=== PATIENT | male | born 1950 | race Caucasian/White ===

== ENCOUNTER 2022-05-06 10:26 | Inpatient (IN) | payer MEDICARE, OTHER ==
[~2022-05-06] VITALS: Ht 182.9 cm; Wt 81.8 kg
[2022-05-06] MEDS ORDERED: normal saline 1000ml 1,000 ML IV ONE ×2 (12:00→12:15)
[2022-05-06] MEDS ORDERED: CefTRIAXone/D5W-Rocephin 1gm 50 ML IV ONE (12:00)
[2022-05-06 12:23] LABS: CLARITY,URINE CLOUDY (Clear); COLOR,URINE YELLOW (Yellow); GLUCOSE, URINE 500 mg/dl (Neg); KETONES,URINE NEGATIVE (Neg); LEUKOCYTE ESTERASE ,URINE MODERATE (Neg); NITRITES, URINE NEGATIVE (Neg); OCCULT BLOOD,URINE LARGE (Neg); PROTEIN,URINE 100 mg/dl (Neg); UROBILINOGEN,URINE 0.2 E.U/dL (0.2-1.0)
[2022-05-06 12:24] LABS: BASOPHILS % (AUTO) 0.3 % (0-1); EOSINOPHILS % (AUTO) 0 % (0-6); HEMATOCRIT 45.3 % (42.0-52.0); LYMPHOCYTES # (AUTO) 1.1 X10'3 (1.1-4.8); LYMPHOCYTES % (AUTO) 9.5 % (21-51); MEAN CORPUSCULAR HEMOGLOBIN 27.5 PG (27.0-31.0); MEAN CORPUSCULAR VOLUME 83.3 FL (78-98); MEAN PLATELET VOLUME 8.4 FL (7.4-10.4); MONOCYTES # (AUTO) 0.8 X10'3 (0-0.9); MONOCYTES % (AUTO) 6.6 % (2-12); NEUTROPHILS # (AUTO) 9.8 X10'3 (1.8-7.7); NEUTROPHILS % (AUTO) 83.6 % (42-75); PLATELET COUNT 326 X10'3 (140-440); RED BLOOD COUNT 5.45 X10'6 (4.70-6.10); RED CELL DISTRIBUTION WIDTH 16.4 % (11.5-14.5); WHITE BLOOD COUNT 11.8 X10'3 (4.5-11.0)
[2022-05-06 12:29] LABS: UA COLLECTION TYPE OTHER
[2022-05-06 12:31] LABS: BACTERIA,URINE 4+ /HPF (Neg); MUCUS STRANDS NONE SEEN /LPF (Neg); RBC,URINE 50-100 /HPF (0-2); SQUAMOUS EPITHELIAL CELL,UR NONE SEEN /LPF (FEW); WBC,URINE TNTC /HPF (0-4)
[2022-05-06 13:12] LABS: ALANINE AMINOTRANSFERASE 22 U/L (12-78); ALBUMIN 3.2 G/DL (3.4-5.0); ALBUMIN/GLOBULIN RATIO 0.5 (1.1-1.5); ALKALINE PHOSPHATASE 132 IU/L (46-116); ANION GAP 12 (8-16); ASPARTATE AMINO TRANSFERASE 30 U/L (10-37); BILIRUBIN,TOTAL 0.5 MG/DL (0.1-1.0); BLOOD UREA NITROGEN 33 MG/DL (7-18); BUN/CREATININE RATIO 21.7 (5.4-32.0); CHLORIDE 99 MMOL/L (99-107); CREATININE 1.52 MG/DL (0.60-1.10); GLUCOSE 293 MG/DL (70-104); POTASSIUM 4.7 MMOL/L (3.5-5.1); SODIUM 140 MMOL/L (135-145); TOTAL CARBON DIOXIDE 29.1 MMOL/L (24-32); TOTAL PROTEIN 9.2 G/DL (6.4-8.2); eGFR 45 ML/MIN
[2022-05-06] MEDS ORDERED: DAPA10TA PO (14:09)
[2022-05-06] MEDS ORDERED: CARV-50 PO (14:09)
[2022-05-06] MEDS ORDERED: APIX5TAB3 PO (14:09)
[2022-05-06] MEDS ORDERED: ATOR40TA PO (14:09)
[2022-05-06] MEDS ORDERED: GLIP10TA21 PO (14:09)
[2022-05-06] MEDS ORDERED: FLO0.4C PO (14:09)
[2022-05-06] MEDS ORDERED: METF-438 PO (14:09)
[2022-05-06] MEDS ORDERED: LISI40TA13 PO (14:09)
[2022-05-06] MEDS ORDERED: DONE-46 PO (14:09)
[2022-05-06] MEDS ORDERED: ondansetron/PF 4mg/2ml inj IV PRN (14:50)
[2022-05-06] MEDS ORDERED: morphine 2 MG/ML inj. syringe IV PRN ×2 (14:50)
[2022-05-06] MEDS ORDERED: acetaminophen 325mg tablet PO PRN ×2 (14:50)
[2022-05-06] MEDS ORDERED: magnesium hydroxide 30ml (MOM) UD suspension PO PRN (14:50)
[2022-05-06] MEDS ORDERED: mag hydrox/Alum hydrox/simeth 30ml oral suspension PO PRN (14:50)
[2022-05-06] MEDS ORDERED: glucagon, human recombinant 1mg kit SUBCUT PRN (15:00)
[2022-05-06] MEDS ORDERED: dextrose 50%-water 50ml dispensing syringe IV PRN ×2 (15:00)
[2022-05-06] MEDS ORDERED: DEXTROSE 15 GM of carb/4 tabs (each vial/BOTTLE has 4 tablets) PO PRN ×2 (15:00)
[2022-05-06] MEDS ORDERED: MESSAGE TO PHARMACY PO ONE (15:00)
[2022-05-06] MEDS: normal saline 1000ml 1,000 ML IV SCH (15:03)
--- NOTE | 2022-05-06 17:27 | NUR ---
Family into see pt. States pt has chronic UTIs and is to high of a care for them at home. hospitalist paged and made aware that family is at bedside if provider has any questions. per family pt has been out of home medication for the past 2 wks except DM medication and lisinopril.
[2022-05-06] MEDS ORDERED: LANTUS SQ (18:14)
[2022-05-06] MEDS: apixaban 5mg tablet PO SCH (20:10)
[2022-05-06] MEDS: atorvastatin 20mg tablet PO SCH (20:11)
[2022-05-06] MEDS: carVEDilol 12.5mg tablet PO SCH (20:11)
[2022-05-06] MEDS: docusate sod 100mg capsule PO SCH (20:11)
--- NOTE | 2022-05-06 20:29 | NUR ---
[facility],
[2022-05-06] MEDS: insulin glargine (Lantus) pen - multi-dose SQ SCH (21:17)
[2022-05-07] MEDS: normal saline 1000ml 1,000 ML IV SCH ×3 (00:50→17:25)
[2022-05-07 05:18] LABS: BASOPHILS % (AUTO) 0.4 % (0-1); EOSINOPHILS % (AUTO) 0.3 % (0-6); HEMATOCRIT 38.6 % (42.0-52.0); HEMOGLOBIN 12.8 g/dl (14.0-17.9); LYMPHOCYTES # (AUTO) 1.6 X10'3 (1.1-4.8); LYMPHOCYTES % (AUTO) 19.4 % (21-51); MEAN CORPUSCULAR HEMOGLOBIN 27.7 PG (27.0-31.0); MEAN CORPUSCULAR HGB CONC 33.1 g/dL (33.0-36.5); MEAN CORPUSCULAR VOLUME 83.8 FL (78-98); MEAN PLATELET VOLUME 8.3 FL (7.4-10.4); MONOCYTES # (AUTO) 0.6 X10'3 (0-0.9); MONOCYTES % (AUTO) 7.7 % (2-12); NEUTROPHILS # (AUTO) 5.9 X10'3 (1.8-7.7); NEUTROPHILS % (AUTO) 72.2 % (42-75); PLATELET COUNT 226 X10'3 (140-440); RED CELL DISTRIBUTION WIDTH 16.3 % (11.5-14.5); WHITE BLOOD COUNT 8.1 X10'3 (4.5-11.0)
[2022-05-07 05:28] LABS: ALBUMIN 2.4 G/DL (3.4-5.0); ANION GAP 10 (8-16); BLOOD UREA NITROGEN 28 MG/DL (7-18); CALCIUM 8.9 MG/DL (8.5-10.1); CHLORIDE 108 MMOL/L (99-107); CREATININE 1.27 MG/DL (0.60-1.10); GLUCOSE 214 MG/DL (70-104); POTASSIUM 3.9 MMOL/L (3.5-5.1); SODIUM 145 MMOL/L (135-145); TOTAL CARBON DIOXIDE 27.2 MMOL/L (24-32); eGFR 56 ML/MIN
[2022-05-07 07:00] VITALS: BP 148/72
--- NOTE | 2022-05-07 07:00 | NUR ---
PATIENT ARRIVED TO GI LAB FROM THE ER, REPORT RECEIVED AND CARE ASSUMED. ASSESSMENT DONE, VITAL TAKEN, NO C/O PAIN OR DISCOMFORT.
[2022-05-07] MEDS: insulin Lispro (HumaLOG) vial - multi-dose SQ SCH ×3 (08:41→19:27)
[2022-05-07] MEDS: CefTRIAXone/D5W-Rocephin 1gm 50 ML IV SCH (09:28)
[2022-05-07] MEDS: donepezil 5mg tablet PO SCH (09:28)
[2022-05-07] MEDS: tamsulosin 0.4mg capsule PO SCH (09:29)
[2022-05-07] MEDS: carVEDilol 12.5mg tablet PO SCH ×2 (09:29→19:30)
[2022-05-07] MEDS: docusate sod 100mg capsule PO SCH ×2 (09:29→19:30)
[2022-05-07] MEDS: apixaban 5mg tablet PO SCH ×2 (09:29→19:30)
[2022-05-07] MEDS: lisinopril 20mg tablet PO SCH (09:30)
[2022-05-07 11:00] VITALS: BP 141/82
--- NOTE | 2022-05-07 14:56 | NUR ---
Patient in room ED 7. I have received report from fern WHYTE and had the opportunity to ask questions and awaiting patients arrival.
--- NOTE | 2022-05-07 15:15 | NUR ---
Transfered to 350B on tele and room air via bed. Report called all questions answered.
[2022-05-07 15:41] VITALS: BP 123/71
[2022-05-07 17:05] VITALS: BP 126/78
--- NOTE | 2022-05-07 17:08 | NUR ---
1600 patient settled in room. VSS. BS 137. no new complaints
--- NOTE | 2022-05-07 17:56 | NUR ---
Problems reprioritized. Patient report given, questions answered & plan of care reviewed with jefry hansen.
[2022-05-07 18:00] VITALS: BP 126/78
--- NOTE | 2022-05-07 18:06 | NUR ---
tELE CALLED TO SAY PATIENT HAD 12BEAT RUN OF VTACH. dR Gar PAGED APPEARS STABLE AT THIS TIME.
--- NOTE | 2022-05-07 18:32 | NUR ---
Problems reprioritized. Patient report given, questions answered & plan of care reviewed with Parish WHYTE.
--- NOTE | 2022-05-07 18:35 | NUR ---
Patient in room [facility] 358. I have received report from KARYN WHYTE and had the opportunity to ask questions and assume patient care.
[2022-05-07] MEDS: atorvastatin 20mg tablet PO SCH (19:30)
[2022-05-07] MEDS: insulin glargine (Lantus) pen - multi-dose SQ SCH (21:25)
[2022-05-07 22:00] VITALS: BP 122/74
--- NOTE | 2022-05-08 06:30 | NUR ---
Problems reprioritized. Patient report given, questions answered & plan of care reviewed with AUSTIN WHYTE.
[2022-05-08] MEDS: normal saline 1000ml 1,000 ML IV SCH ×2 (06:50→16:50)
[2022-05-08 07:19] LABS: BASOPHILS % (AUTO) 0.5 % (0-1); EOSINOPHILS # (AUTO) 0.1 X10'3 (0-0.9); EOSINOPHILS % (AUTO) 1.4 % (0-6); HEMATOCRIT 37.1 % (42.0-52.0); HEMOGLOBIN 12.2 g/dl (14.0-17.9); LYMPHOCYTES % (AUTO) 13.8 % (21-51); MEAN CORPUSCULAR HEMOGLOBIN 27.5 PG (27.0-31.0); MEAN CORPUSCULAR HGB CONC 32.8 g/dL (33.0-36.5); MEAN CORPUSCULAR VOLUME 83.7 FL (78-98); MONOCYTES # (AUTO) 0.5 X10'3 (0-0.9); NEUTROPHILS # (AUTO) 5.7 X10'3 (1.8-7.7); NEUTROPHILS % (AUTO) 77.3 % (42-75); PLATELET COUNT 201 X10'3 (140-440); RED BLOOD COUNT 4.43 X10'6 (4.70-6.10); RED CELL DISTRIBUTION WIDTH 16.6 % (11.5-14.5); WHITE BLOOD COUNT 7.3 X10'3 (4.5-11.0)
[2022-05-08] MEDS: donepezil 5mg tablet PO SCH (07:27)
[2022-05-08] MEDS: tamsulosin 0.4mg capsule PO SCH (07:27)
[2022-05-08] MEDS: lisinopril 20mg tablet PO SCH (07:27)
[2022-05-08] MEDS: carVEDilol 12.5mg tablet PO SCH ×2 (07:28→21:07)
[2022-05-08] MEDS: apixaban 5mg tablet PO SCH ×2 (07:28→21:06)
[2022-05-08] MEDS: docusate sod 100mg capsule PO SCH ×2 (07:28→21:07)
[2022-05-08] MEDS: CefTRIAXone/D5W-Rocephin 1gm 50 ML IV SCH (07:32)
[2022-05-08 07:36] LABS: ALBUMIN 2.2 G/DL (3.4-5.0); ANION GAP 11 (8-16); BLOOD UREA NITROGEN 22 MG/DL (7-18); CALCIUM 8.7 MG/DL (8.5-10.1); CHLORIDE 104 MMOL/L (99-107); GLUCOSE 179 MG/DL (70-104); POTASSIUM 3.5 MMOL/L (3.5-5.1); SODIUM 141 MMOL/L (135-145); TOTAL CARBON DIOXIDE 26.3 MMOL/L (24-32); eGFR 66 ML/MIN
[2022-05-08 08:00] VITALS: BP 136/87
[2022-05-08 10:00] VITALS: BP 117/70
--- NOTE | 2022-05-08 12:59 | NUR ---
Malnutrition consult: Pt reports 2-13 lb wt loss with decreased appetite per malnutrition risk screen with RN though per EMR pt is A/O x 1 and confused with h/o dementia. No documentation of how current wt was obtained and no wt hx in EMR, though current wt is appropriate if accurate. Pt on a heart healthy CHO controlled diet and eating well, documented with 100% PO intake throughout LOS meeting estimated nutrient needs. Per EMR pt with no decrease in muscle strength or edema. Pt currently lacks a minimum of two criteria for malnutrition. Per EMR pt with T2DM, current A1c 9.0%. Written DM education with RD contact information placed in patient's chart given AMS. Will continue to follow. Addendum: 05/08/22 at [address] Amended: Links added.
[2022-05-08] MEDS: insulin Lispro (HumaLOG) vial - multi-dose SQ SCH (14:01)
[2022-05-08 18:00] VITALS: BP 102/69
--- NOTE | 2022-05-08 18:20 | NUR ---
PAGER ID: [phone] MESSAGE: PT RM 358A SHIN FLORES 24 HOUR TELE ORDER IS UP WOULD YOU LIKE TO RENEW ORDER JOE [id number]
[2022-05-08] MEDS: atorvastatin 20mg tablet PO SCH (21:06)
[2022-05-08] MEDS: insulin glargine (Lantus) pen - multi-dose SQ SCH (21:06)
[2022-05-08 21:13] VITALS: BP 139/84
[2022-05-08 22:00] VITALS: BP 131/68
[2022-05-09] MEDS: normal saline 1000ml 1,000 ML IV SCH ×4 (02:50→23:39)
[2022-05-09 06:00] VITALS: BP 126/60
[2022-05-09 06:15] VITALS: BP 126/60
--- NOTE | 2022-05-09 06:51 | NUR ---
Patient in room [facility] 358. I have received report from Yancy and had the opportunity to ask questions and assume patient care.
--- NOTE | 2022-05-09 06:54 | NUR ---
Problems reprioritized. Patient report given, questions answered & plan of care reviewed with PATO Davenport.
[2022-05-09 07:18] LABS: BASOPHILS % (AUTO) 0.3 % (0-1); EOSINOPHILS # (AUTO) 0.1 X10'3 (0-0.9); HEMATOCRIT 33.4 % (42.0-52.0); LYMPHOCYTES # (AUTO) 1.2 X10'3 (1.1-4.8); LYMPHOCYTES % (AUTO) 16.6 % (21-51); MEAN CORPUSCULAR HEMOGLOBIN 27.1 PG (27.0-31.0); MEAN CORPUSCULAR VOLUME 81.9 FL (78-98); MEAN PLATELET VOLUME 8.1 FL (7.4-10.4); MONOCYTES # (AUTO) 0.5 X10'3 (0-0.9); MONOCYTES % (AUTO) 6.9 % (2-12); NEUTROPHILS # (AUTO) 5.6 X10'3 (1.8-7.7); NEUTROPHILS % (AUTO) 75.2 % (42-75); PLATELET COUNT 217 X10'3 (140-440); RED BLOOD COUNT 4.08 X10'6 (4.70-6.10); RED CELL DISTRIBUTION WIDTH 15.9 % (11.5-14.5); WHITE BLOOD COUNT 7.5 X10'3 (4.5-11.0)
[2022-05-09 07:27] LABS: ANION GAP 10 (8-16); BLOOD UREA NITROGEN 19 MG/DL (7-18); BUN/CREATININE RATIO 24.1 (5.4-32.0); CALCIUM 8.3 MG/DL (8.5-10.1); CHLORIDE 105 MMOL/L (99-107); CREATININE 0.79 MG/DL (0.60-1.10); GLUCOSE 167 MG/DL (70-104); SODIUM 139 MMOL/L (135-145); TOTAL CARBON DIOXIDE 24.5 MMOL/L (24-32); eGFR > 90 ML/MIN
[2022-05-09] MEDS: CefTRIAXone/D5W-Rocephin 1gm 50 ML IV SCH (07:38)
[2022-05-09 07:39] VITALS: BP 144/78
[2022-05-09] MEDS: carVEDilol 12.5mg tablet PO SCH ×2 (07:40→19:30)
[2022-05-09] MEDS: docusate sod 100mg capsule PO SCH ×2 (07:40→19:30)
[2022-05-09] MEDS: donepezil 5mg tablet PO SCH (07:40)
[2022-05-09] MEDS: apixaban 5mg tablet PO SCH ×2 (07:40→19:31)
[2022-05-09] MEDS: tamsulosin 0.4mg capsule PO SCH (07:40)
[2022-05-09] MEDS: lisinopril 20mg tablet PO SCH (07:41)
[2022-05-09] MEDS ORDERED: potassium Cl 20 mEq SR tablet PO STA (08:18)
[2022-05-09] MEDS: insulin Lispro (HumaLOG) vial - multi-dose SQ SCH ×3 (09:25→19:37)
[2022-05-09 11:36] VITALS: BP 141/84
--- NOTE | 2022-05-09 18:36 | NUR ---
Problems reprioritized. Patient report given, questions answered & plan of care reviewed with Armen.
[2022-05-09 18:44] VITALS: BP 135/85
[2022-05-09 22:00] VITALS: BP 164/83
[2022-05-09] MEDS: atorvastatin 20mg tablet PO SCH (22:11)
[2022-05-09] MEDS: insulin glargine (Lantus) pen - multi-dose SQ SCH (22:19)
--- NOTE | 2022-05-09 23:43 | NUR ---
Charting by Lila COATES reviewed by Fatimah WHYTE
[2022-05-10 02:00] VITALS: BP 118/39
[2022-05-10 06:00] VITALS: BP 150/97
[2022-05-10 06:33] VITALS: BP 150/97
[2022-05-10 06:34] LABS: BASOPHILS % (AUTO) 0.5 % (0-1); EOSINOPHILS # (AUTO) 0.2 X10'3 (0-0.9); EOSINOPHILS % (AUTO) 2.3 % (0-6); HEMATOCRIT 31.5 % (42.0-52.0); HEMOGLOBIN 10.7 g/dl (14.0-17.9); LYMPHOCYTES # (AUTO) 1.5 X10'3 (1.1-4.8); MEAN CORPUSCULAR HEMOGLOBIN 27.5 PG (27.0-31.0); MEAN PLATELET VOLUME 8.1 FL (7.4-10.4); MONOCYTES # (AUTO) 0.5 X10'3 (0-0.9); MONOCYTES % (AUTO) 6.5 % (2-12); NEUTROPHILS # (AUTO) 5.5 X10'3 (1.8-7.7); NEUTROPHILS % (AUTO) 71.7 % (42-75); PLATELET COUNT 212 X10'3 (140-440); RED CELL DISTRIBUTION WIDTH 16.1 % (11.5-14.5); WHITE BLOOD COUNT 7.6 X10'3 (4.5-11.0)
--- NOTE | 2022-05-10 06:40 | NUR ---
Patient in room [facility] 358. I have received report from Armen WHYTE and had the opportunity to ask questions and assume patient care.
--- NOTE | 2022-05-10 06:45 | NUR ---
reported to days. noted pt has condom cath in place. tabs alarm active.
[2022-05-10 06:46] LABS: BLOOD UREA NITROGEN 15 MG/DL (7-18); BUN/CREATININE RATIO 22.7 (5.4-32.0); CALCIUM 8.1 MG/DL (8.5-10.1); CREATININE 0.66 MG/DL (0.60-1.10); GLUCOSE 111 MG/DL (70-104); TOTAL CARBON DIOXIDE 25.8 MMOL/L (24-32); eGFR > 90 ML/MIN
[2022-05-10 06:55] LABS: ANION GAP 7 (8-16); CHLORIDE 102 MMOL/L (99-107); POTASSIUM 3.1 MMOL/L (3.5-5.1); SODIUM 135 MMOL/L (135-145)
[2022-05-10] MEDS: CefTRIAXone/D5W-Rocephin 1gm 50 ML IV SCH (07:18)
[2022-05-10] MEDS: docusate sod 100mg capsule PO SCH ×2 (08:11→21:23)
[2022-05-10] MEDS: tamsulosin 0.4mg capsule PO SCH (08:12)
[2022-05-10] MEDS: donepezil 5mg tablet PO SCH (08:12)
[2022-05-10] MEDS: apixaban 5mg tablet PO SCH ×2 (08:12→21:23)
[2022-05-10] MEDS: lisinopril 20mg tablet PO SCH (08:12)
[2022-05-10] MEDS: carVEDilol 12.5mg tablet PO SCH ×2 (08:12→21:23)
[2022-05-10] MEDS: insulin Lispro (HumaLOG) vial - multi-dose SQ SCH ×3 (08:47→19:27)
--- NOTE | 2022-05-10 09:13 | NUR ---
PAGER ID: [phone] MESSAGE: Junaid Urias RM 358A, pt K is 3.1 can we get order for replacement? Thanks [facility] 0412
--- NOTE | 2022-05-10 09:54 | NUR ---
Initial: Pt admitted w/ metabolic encephalopathy, UTI, and EDWIN/CKD per EMR. Currently on Heart Healthy/Carb control diet w/ mostly 100% intake of meals close to meeting est nutrient needs; being a little short on calories d/t the restrictive nature of the Carb control diet. Pt noted to be A&O x 2 and confused though able to feed self. LBM 05/09. Will continue to monitor. Recs: 1. Continue Carb control diet, remove Heart Healthy diet 2. Double protein WB 3. Bowel care per rx 4. Scale wts Addendum: 05/10/22 at [address] Amended: Links added.
[2022-05-10 11:17] VITALS: BP 127/74
--- NOTE | 2022-05-10 15:00 | NUR ---
JAVA DEVELOPER ARCHITECT documentation: I have reviewed and agree with all interventions, assessments performed and documented by Zhanna Chaudhry LVN.
[2022-05-10 18:00] VITALS: BP 134/91
--- NOTE | 2022-05-10 18:15 | NUR ---
Problems reprioritized. Patient report given, questions answered & plan of care reviewed with Parish Smith .
--- NOTE | 2022-05-10 18:30 | NUR ---
Patient in room [facility] 358. I have received report from ALEJANDRA DIANA and had the opportunity to ask questions and assume patient care.
[2022-05-10] MEDS: atorvastatin 20mg tablet PO SCH (21:23)
[2022-05-10] MEDS: insulin glargine (Lantus) pen - multi-dose SQ SCH (21:38)
[2022-05-10] MEDS: normal saline 1000ml 1,000 ML IV SCH (21:39)
[2022-05-10 22:00] VITALS: BP 147/89
[2022-05-11] MEDS: normal saline 1000ml 1,000 ML IV SCH ×3 (04:50→23:22)
--- NOTE | 2022-05-11 06:30 | NUR ---
Problems reprioritized. Patient report given, questions answered & plan of care reviewed with ALEJANDRA DIANA.
[2022-05-11 07:35] LABS: BASOPHILS % (AUTO) 0.4 % (0-1); EOSINOPHILS # (AUTO) 0.1 X10'3 (0-0.9); HEMATOCRIT 33.5 % (42.0-52.0); HEMOGLOBIN 11.1 g/dl (14.0-17.9); LYMPHOCYTES # (AUTO) 1.3 X10'3 (1.1-4.8); LYMPHOCYTES % (AUTO) 17.3 % (21-51); MEAN CORPUSCULAR HEMOGLOBIN 27.4 PG (27.0-31.0); MEAN CORPUSCULAR VOLUME 82.8 FL (78-98); MEAN PLATELET VOLUME 8.1 FL (7.4-10.4); MONOCYTES # (AUTO) 0.4 X10'3 (0-0.9); MONOCYTES % (AUTO) 5.9 % (2-12); NEUTROPHILS # (AUTO) 5.6 X10'3 (1.8-7.7); NEUTROPHILS % (AUTO) 74.4 % (42-75); PLATELET COUNT 227 X10'3 (140-440); RED BLOOD COUNT 4.04 X10'6 (4.70-6.10); RED CELL DISTRIBUTION WIDTH 15.7 % (11.5-14.5); WHITE BLOOD COUNT 7.6 X10'3 (4.5-11.0)
[2022-05-11] MEDS: CefTRIAXone/D5W-Rocephin 1gm 50 ML IV SCH (07:49)
[2022-05-11] MEDS: tamsulosin 0.4mg capsule PO SCH (08:21)
[2022-05-11] MEDS: donepezil 5mg tablet PO SCH (08:21)
[2022-05-11] MEDS: carVEDilol 12.5mg tablet PO SCH ×2 (08:21→20:13)
[2022-05-11] MEDS: lisinopril 20mg tablet PO SCH (08:21)
[2022-05-11] MEDS: docusate sod 100mg capsule PO SCH ×2 (08:21→20:13)
[2022-05-11] MEDS: apixaban 5mg tablet PO SCH ×2 (08:22→20:13)
--- NOTE | 2022-05-11 08:33 | NUR ---
PAGER ID: [phone] MESSAGE: Pt leena kiser rm 358A pt BP is 190/104 pulse of 96 please advise. [facility] 6132
[2022-05-11 09:44] LABS: ANION GAP 12 (8-16); BLOOD UREA NITROGEN 15 MG/DL (7-18); CALCIUM 8.4 MG/DL (8.5-10.1); CHLORIDE 100 MMOL/L (99-107); CREATININE 0.75 MG/DL (0.60-1.10); GLUCOSE 162 MG/DL (70-104); POTASSIUM 3.3 MMOL/L (3.5-5.1); SODIUM 137 MMOL/L (135-145); TOTAL CARBON DIOXIDE 25.2 MMOL/L (24-32); eGFR > 90 ML/MIN
[2022-05-11] MEDS: insulin Lispro (HumaLOG) vial - multi-dose SQ SCH ×2 (09:50→13:36)
[2022-05-11] MEDS ORDERED: hydrALAZINE 20mg/ml inj. IV PRN (10:45)
--- NOTE | 2022-05-11 10:58 | NUR ---
aware of elevated BP, new order for PRN hydralazine, administered by RN.
--- NOTE | 2022-05-11 16:22 | NUR ---
PAGER ID: [phone] MESSAGE: Junaid Urias 358A K level 3.3 can i get order for replacement? [facility] 5475
--- NOTE | 2022-05-11 17:46 | NUR ---
LEGAL OPERATIONS MANAGER documentation: I have reviewed and agree with all interventions, assessments performed and documented by Zhanna Chaudhry LVN.
[2022-05-11 18:00] VITALS: BP 118/85
--- NOTE | 2022-05-11 18:33 | NUR ---
Patient in room [facility] 358. I have received report from Zhanna and had the opportunity to ask questions and assume patient care.
[2022-05-11] MEDS: atorvastatin 20mg tablet PO SCH (20:13)
[2022-05-11] MEDS: insulin glargine (Lantus) pen - multi-dose SQ SCH (21:57)
[2022-05-11 22:00] VITALS: BP 143/86
[2022-05-12 06:00] VITALS: BP 140/83
--- NOTE | 2022-05-12 06:02 | NUR ---
Problems reprioritized. Patient report given, questions answered & plan of care reviewed with
--- NOTE | 2022-05-12 06:58 | NUR ---
Agree with Nola ADJUNCT FACULTY FOR MEDICAL TERMINOLOGY assessment except where I documented my findings.
[2022-05-12] MEDS: CefTRIAXone/D5W-Rocephin 1gm 50 ML IV SCH (08:00)
[2022-05-12] MEDS: apixaban 5mg tablet PO SCH ×2 (08:20→20:54)
[2022-05-12] MEDS: carVEDilol 12.5mg tablet PO SCH ×2 (08:20→20:54)
[2022-05-12] MEDS: donepezil 5mg tablet PO SCH (08:20)
[2022-05-12] MEDS: docusate sod 100mg capsule PO SCH ×2 (08:20→20:54)
[2022-05-12] MEDS: lisinopril 20mg tablet PO SCH (08:21)
[2022-05-12] MEDS: tamsulosin 0.4mg capsule PO SCH (08:21)
[2022-05-12] MEDS: insulin Lispro (HumaLOG) vial - multi-dose SQ SCH ×2 (09:06→13:40)
[2022-05-12 10:00] VITALS: BP 129/67
[2022-05-12] MEDS: normal saline 1000ml 1,000 ML IV SCH ×2 (11:17→20:55)
--- NOTE | 2022-05-12 17:44 | NUR ---
PAGER ID: [phone] MESSAGE: Pt leena kiser rm 358A ILEANAI BS at [id number] non symptomatic, treated, bs at [phone] Zhanna Surg 9088
[2022-05-12 18:00] VITALS: BP 119/68
--- NOTE | 2022-05-12 18:15 | NUR ---
I have reviewed and agree with all interventions, assessments performed, and documention by Zhanna Hunter LVN.
[2022-05-12] MEDS: atorvastatin 20mg tablet PO SCH (20:54)
[2022-05-12] MEDS: insulin glargine (Lantus) pen - multi-dose SQ SCH (20:58)
[2022-05-12 22:00] VITALS: BP 137/76
--- NOTE | 2022-05-12 23:47 | NUR ---
Problems reprioritized. Patient report given, questions answered & plan of care reviewed with pat RN.
--- NOTE | 2022-05-13 00:01 | NUR ---
AGREE WITH LEGAL SUPPORT ASSISTANT PHYSICAL ASSESSMENT CHARTED
[2022-05-13 06:00] VITALS: BP 147/84
--- NOTE | 2022-05-13 06:53 | NUR ---
Patient in room [facility] 358. I have received report from PAT RN and had the opportunity to ask questions and assume patient care.
[2022-05-13] MEDS: donepezil 5mg tablet PO SCH (08:07)
[2022-05-13] MEDS: lisinopril 20mg tablet PO SCH (08:08)
[2022-05-13] MEDS: apixaban 5mg tablet PO SCH ×2 (08:08→21:38)
[2022-05-13] MEDS: carVEDilol 12.5mg tablet PO SCH ×2 (08:08→21:38)
[2022-05-13] MEDS: docusate sod 100mg capsule PO SCH ×2 (08:08→21:38)
[2022-05-13] MEDS: tamsulosin 0.4mg capsule PO SCH (08:08)
[2022-05-13] MEDS: normal saline 1000ml 1,000 ML IV SCH ×2 (08:11→16:50)
[2022-05-13] MEDS: CefTRIAXone/D5W-Rocephin 1gm 50 ML IV SCH (08:11)
[2022-05-13 10:00] VITALS: BP 116/62
[2022-05-13] MEDS: insulin Lispro (HumaLOG) vial - multi-dose SQ SCH ×3 (10:18→18:57)
--- NOTE | 2022-05-13 11:37 | NUR ---
DR ISAAC WAS MADE AWARE IF PTS WOUND ON HIS LEFT LATERAL THIGH, HE SAID TO PUT IN WOUND CONSULT AND LET WOUND CARE UNDRESS IT AND EVALUATE.
[2022-05-13 18:30] VITALS: BP 145/78
--- NOTE | 2022-05-13 18:31 | NUR ---
Problems reprioritized. Patient report given, questions answered & plan of care reviewed with JOYA WHYTE.
[2022-05-13 19:10] VITALS: BP 145/78
[2022-05-13] MEDS: atorvastatin 20mg tablet PO SCH (21:38)
[2022-05-13] MEDS: insulin glargine (Lantus) pen - multi-dose SQ SCH (22:51)
[2022-05-13 23:30] VITALS: BP 139/85
[2022-05-14] MEDS: normal saline 1000ml 1,000 ML IV SCH ×2 (02:30→14:16)
[2022-05-14 06:08] LABS: BASOPHILS % (AUTO) 0.7 % (0-1); EOSINOPHILS # (AUTO) 0.2 X10'3 (0-0.9); EOSINOPHILS % (AUTO) 2.6 % (0-6); HEMATOCRIT 31.3 % (42.0-52.0); HEMOGLOBIN 10.3 g/dl (14.0-17.9); LYMPHOCYTES # (AUTO) 1.8 X10'3 (1.1-4.8); LYMPHOCYTES % (AUTO) 27.4 % (21-51); MEAN CORPUSCULAR HEMOGLOBIN 27.1 PG (27.0-31.0); MEAN CORPUSCULAR VOLUME 82.2 FL (78-98); MEAN PLATELET VOLUME 7.9 FL (7.4-10.4); MONOCYTES # (AUTO) 0.4 X10'3 (0-0.9); MONOCYTES % (AUTO) 6.6 % (2-12); NEUTROPHILS % (AUTO) 62.7 % (42-75); PLATELET COUNT 261 X10'3 (140-440); RED CELL DISTRIBUTION WIDTH 16.2 % (11.5-14.5); WHITE BLOOD COUNT 6.4 X10'3 (4.5-11.0)
--- NOTE | 2022-05-14 06:38 | NUR ---
Problems reprioritized. Patient report given, questions answered & plan of care reviewed with CORIN. Addendum: 05/14/22 at 0638 by Cruzito Nair RN Amended: Links added.
[2022-05-14 06:39] LABS: ALANINE AMINOTRANSFERASE 27 U/L (12-78); ALBUMIN 2.1 G/DL (3.4-5.0); ALBUMIN/GLOBULIN RATIO 0.5 (1.1-1.5); ALKALINE PHOSPHATASE 112 IU/L (46-116); ANION GAP 9 (8-16); ASPARTATE AMINO TRANSFERASE 22 U/L (10-37); BILIRUBIN,TOTAL 0.2 MG/DL (0.1-1.0); BLOOD UREA NITROGEN 17 MG/DL (7-18); BUN/CREATININE RATIO 22.7 (5.4-32.0); CALCIUM 8.4 MG/DL (8.5-10.1); CHLORIDE 104 MMOL/L (99-107); CREATININE 0.75 MG/DL (0.60-1.10); GLUCOSE 216 MG/DL (70-104); SODIUM 139 MMOL/L (135-145); TOTAL CARBON DIOXIDE 26.3 MMOL/L (24-32); TOTAL PROTEIN 6.1 G/DL (6.4-8.2); eGFR > 90 ML/MIN
--- NOTE | 2022-05-14 06:59 | NUR ---
CRITICAL POTASSIUM 3.0, DR SANCHEZ AWAITING CALL BACK PAGER ID: [phone] MESSAGE: SANDRA 358A: CRITICAL POTASIUM 3.0, NEED PROTOCOL, BP 170/106 THANK YOU CORIN 6923
[2022-05-14 07:20] VITALS: BP 170/106
[2022-05-14] MEDS: CefTRIAXone/D5W-Rocephin 1gm 50 ML IV SCH (07:51)
[2022-05-14] MEDS: carVEDilol 12.5mg tablet PO SCH (07:51)
[2022-05-14] MEDS: lisinopril 20mg tablet PO SCH (07:52)
[2022-05-14] MEDS: docusate sod 100mg capsule PO SCH (07:52)
[2022-05-14] MEDS: tamsulosin 0.4mg capsule PO SCH (07:52)
[2022-05-14] MEDS: donepezil 5mg tablet PO SCH (07:52)
[2022-05-14] MEDS: apixaban 5mg tablet PO SCH (07:52)
[2022-05-14] MEDS ORDERED: magnesium 4gm in 100ml NS 100 ML IV PRN (10:45)
[2022-05-14] MEDS ORDERED: potassium Cl 40MEQ/1/2NS 520ml 520 ML IV PRN (10:45)
[2022-05-14] MEDS ORDERED: magnesium Cl slow-release 64mg tablet PO PRN (10:45)
[2022-05-14] MEDS ORDERED: potassium Cl 20 mEq SR tablet PO PRN ×2 (10:45)
[2022-05-14 11:00] VITALS: BP 149/101
[2022-05-14] MEDS ORDERED: CIPR-202 PO (11:06)
--- NOTE | 2022-05-14 16:55 | NUR ---
PATIENT STABLE FOR DISCHARGE, IV REMOVED, EDUCATION GIVEN, NEW MEDS E-SCRIPTED TO PREFERRED PHARMACY, [facility] ARRANGED AND PAID FOR PATIENT BY HOSPITAL, PATIENT WAS GIVEN CLOTHES, [facility] TOOK PATIENT TO [facility], CALLED DAUGHTER IN LAW, DAUGHTER IN LAW WILL BRING PATIENT'S MEDS, CLOTHES AND SHOES TO [facility].
[2022-05-14] MEDS ORDERED: K and/or MAG REPLACEMENT MC SCH (20:00)
== END 2022-05-14 16:54 | disposition home or self-care (01) | DRG 682 ==
LOC: ER 10:27 → ED HOLD 14:54 → SUR 3N 05-07 16:30
PROVIDERS: ADMIT Internal Medicine; ATTEND Internal Medicine
DX: N17.0 Acute kidney failure with tubular necrosis (principal); E43 Unspecified severe protein-calorie malnutrition; G93.41 Metabolic encephalopathy; N39.0 Urinary tract infection, site not specified; B96.1 Klebsiella pneumoniae [K. pneumoniae] as the cause of diseases classified elsewhere; E87.6 Hypokalemia; I12.9 Hypertensive chronic kidney disease with stage 1 through stage 4 chronic kidney disease, or unspecified chronic kidney disease; E11.22 Type 2 diabetes mellitus with diabetic chronic kidney disease; N18.30 Chronic kidney disease, stage 3 unspecified; I48.0 Paroxysmal atrial fibrillation; N40.0 Benign prostatic hyperplasia without lower urinary tract symptoms; Z79.899 Other long term (current) drug therapy; Z68.24 Body mass index [BMI] 24.0-24.9, adult
CPT/HCPCS: 36415; 71045; 80048; 80053; 81001; 82947; 82948; 83036; 83605; 83880; 84145; 85025; 87040; 87077; 87081; 87088; 87186; 93005; 96365; 97116; 97161; 97530; 97535; 99285; A4349; A4358; A6258; G0378; J0360; J0696; J1815; J3490; J7030

== ENCOUNTER 2022-05-18 20:03 | Emergency (ER) | payer OTHER ==
[~2022-05-18] VITALS: Ht 182.9 cm; Wt 81.8 kg
[~2022-05-18 20:03] MED LIST: APIX5TAB3 PO; ATOR40TA PO; CARV-50 PO; CIPR-202 PO; DAPA10TA PO; DONE-46 PO; FLO0.4C PO; GLIP10TA21 PO; LANTUS SQ; LISI40TA13 PO; METF-438 PO
--- NOTE | 2022-05-18 20:28 | NUR ---
pt states he has been staying at a care home for 2-3 weeks. pts son is a power truck driver, and the pt states he is unable to get into the house to accesss his medications.
--- NOTE | 2022-05-18 20:30 | NUR ---
Vessel Welder agrees with Kaelyn Guerra assessment.
[2022-05-18 20:32] LABS: BASOPHILS # (AUTO) 0.1 X10'3 (0-0.2); BASOPHILS % (AUTO) 0.9 % (0-1); EOSINOPHILS # (AUTO) 0.1 X10'3 (0-0.9); EOSINOPHILS % (AUTO) 1.4 % (0-6); HEMATOCRIT 34.2 % (42.0-52.0); HEMOGLOBIN 11.4 g/dl (14.0-17.9); LYMPHOCYTES # (AUTO) 1.8 X10'3 (1.1-4.8); LYMPHOCYTES % (AUTO) 23.5 % (21-51); MEAN CORPUSCULAR HEMOGLOBIN 27.3 PG (27.0-31.0); MEAN CORPUSCULAR HGB CONC 33.2 g/dL (33.0-36.5); MEAN CORPUSCULAR VOLUME 82.1 FL (78-98); MEAN PLATELET VOLUME 7.3 FL (7.4-10.4); MONOCYTES # (AUTO) 0.4 X10'3 (0-0.9); MONOCYTES % (AUTO) 5.9 % (2-12); NEUTROPHILS # (AUTO) 5.1 X10'3 (1.8-7.7); NEUTROPHILS % (AUTO) 68.3 % (42-75); PLATELET COUNT 308 X10'3 (140-440); RED BLOOD COUNT 4.16 X10'6 (4.70-6.10); RED CELL DISTRIBUTION WIDTH 16.7 % (11.5-14.5); WHITE BLOOD COUNT 7.5 X10'3 (4.5-11.0)
[2022-05-18 20:44] LABS: ALANINE AMINOTRANSFERASE 38 U/L (12-78); ALBUMIN 2.8 G/DL (3.4-5.0); ALBUMIN/GLOBULIN RATIO 0.7 (1.1-1.5); ALKALINE PHOSPHATASE 151 IU/L (46-116); ANION GAP 6 (8-16); ASPARTATE AMINO TRANSFERASE 33 U/L (10-37); BILIRUBIN,TOTAL 0.3 MG/DL (0.1-1.0); BLOOD UREA NITROGEN 30 MG/DL (7-18); BUN/CREATININE RATIO 25.2 (5.4-32.0); CALCIUM 8.8 MG/DL (8.5-10.1); CHLORIDE 101 MMOL/L (99-107); CREATININE 1.19 MG/DL (0.60-1.10); GLUCOSE 390 MG/DL (70-104); POTASSIUM 4.1 MMOL/L (3.5-5.1); SODIUM 139 MMOL/L (135-145); TOTAL CARBON DIOXIDE 32.2 MMOL/L (24-32); eGFR 60 ML/MIN
[2022-05-18] MEDS ORDERED: normal saline 1000ml 1,000 ML IV ONE ×2 (21:55)
[2022-05-18 22:50] LABS: COLOR,URINE YELLOW (Yellow); GLUCOSE, URINE 500 mg/dl (Neg); KETONES,URINE NEGATIVE (Neg); LEUKOCYTE ESTERASE ,URINE NEGATIVE (Neg); NITRITES, URINE NEGATIVE (Neg); OCCULT BLOOD,URINE SMALL (Neg); PH,URINE 5.5 (4.8-8.0); PROTEIN,URINE NEGATIVE (Neg); UROBILINOGEN,URINE 0.2 E.U/dL (0.2-1.0)
[2022-05-18 22:57] LABS: CLARITY,URINE SLIGHTLY CLOUDY (Clear); UA COLLECTION TYPE CLN CATCH MIDSTREAM
[2022-05-18 22:58] LABS: BACTERIA,URINE 1+ /HPF (Neg); SQUAMOUS EPITHELIAL CELL,UR FEW /LPF (FEW)
[2022-05-18 22:59] LABS: WBC CLUMPS,URINE FEW /HPF (NEGATIVE)
[2022-05-18] MEDS ORDERED: cephalexin 500mg capsule PO ONE (23:35)
--- NOTE | 2022-05-18 23:43 | NUR ---
SPOKE WITH PTS SON KELLEY. PER KELLEY HE IS UNABLE TO CARE FOR HIS FATHER AND WILL NOT BE TAKING HIM IN. KELLEY STATES THE PT HAS BEEN LIVING [facility] FOR THE PAST COUPLE OF DAYS.
--- NOTE | 2022-05-19 05:39 | NUR ---
PT INCONTINENT THROUGHOUT THE NIGHT. PT CLEANED UP AND PLACED ON DRY SHEETS WITH A DRY GOWN ON THE GOURNEY.
--- NOTE | 2022-05-19 07:00 | NUR ---
assumed care of pt. doctor went into room and told pt that he has to go. pt states that his clothes are wet. dry clothing given to patient. awaiting breakfast. pt alert and oriented x 3. IV removed. will continue to monitor.
--- NOTE | 2022-05-19 08:25 | NUR ---
pt given breakfast tray
[2022-05-19] MEDS ORDERED: CEPH-585 PO (11:19)
--- NOTE | 2022-05-19 11:23 | NUR ---
SPOKE WITH CASE MANAGEMENT, STATES CAN HELP WITH GETTING PRESCRIPTIONS JUST NEED DISCHARGE INST OF WHAT MEDICATIONS AND THEN WILL CALL [facility] AND SET UP FOR PAID PRESCRIPTIONS. MADE AWARE. STATES WILL PUT IN DC AND THIS RN WILL REPAGE CASE MANAGEMENT.
[2022-05-19 14:03] VITALS: BP 168/80
--- NOTE | 2022-05-19 14:58 | NUR ---
Patient discharged last week to [place], patient unable to return to son and daughter in law home, both aware that patient was discharging to [place], patient does not have access to medication, discharge medication faxed to [facility] pharmacy for indigent medication to be faxed to [address]
[2022-05-23] MEDS ORDERED: CEPH-585 PO (02:42)
== END 2022-05-19 15:15 | disposition home or self-care (01) ==
LOC: ER 20:04
DX: R53.1 Weakness (principal); N39.0 Urinary tract infection, site not specified; N30.00 Acute cystitis without hematuria; I51.9 Heart disease, unspecified; E11.9 Type 2 diabetes mellitus without complications
CPT/HCPCS: 36415; 80053; 81001; 82948; 85025; 87088; 96360; 99285; J7030

== ENCOUNTER 2022-05-22 22:18 | Emergency (ER) | payer OTHER ==
[~2022-05-22] VITALS: Ht 177.8 cm; Wt 75.0 kg
[~2022-05-22 22:18] MED LIST changes: +CEPH-585 PO
[2022-05-23 00:44] LABS: CLARITY,URINE CLEAR (Clear); COLOR,URINE YELLOW (Yellow); GLUCOSE, URINE >=1000 mg/dl (Neg); KETONES,URINE NEGATIVE (Neg); LEUKOCYTE ESTERASE ,URINE NEGATIVE (Neg); NITRITES, URINE POSITIVE (Neg); OCCULT BLOOD,URINE SMALL (Neg); PROTEIN,URINE 30 mg/dl (Neg); UROBILINOGEN,URINE 0.2 E.U/dL (0.2-1.0)
[2022-05-23 00:48] LABS: UA COLLECTION TYPE NON-SPECIFIED
[2022-05-23 00:50] LABS: BACTERIA,URINE 1+ /HPF (Neg); SQUAMOUS EPITHELIAL CELL,UR FEW /LPF (FEW); WBC CLUMPS,URINE FEW /HPF (NEGATIVE)
[2022-05-23 00:51] LABS: YEAST FEW /HPF (NEGATIVE)
[2022-05-23 00:57] LABS: BASOPHILS % (AUTO) 0.6 % (0-1); EOSINOPHILS # (AUTO) 0.1 X10'3 (0-0.9); HEMATOCRIT 34.2 % (42.0-52.0); HEMOGLOBIN 11.4 g/dl (14.0-17.9); LYMPHOCYTES % (AUTO) 15.6 % (21-51); MEAN CORPUSCULAR HEMOGLOBIN 27.5 PG (27.0-31.0); MEAN CORPUSCULAR HGB CONC 33.4 g/dL (33.0-36.5); MEAN CORPUSCULAR VOLUME 82.2 FL (78-98); MEAN PLATELET VOLUME 7.8 FL (7.4-10.4); MONOCYTES # (AUTO) 0.3 X10'3 (0-0.9); MONOCYTES % (AUTO) 5.1 % (2-12); NEUTROPHILS # (AUTO) 5.2 X10'3 (1.8-7.7); NEUTROPHILS % (AUTO) 77.7 % (42-75); PLATELET COUNT 222 X10'3 (140-440); RED BLOOD COUNT 4.16 X10'6 (4.70-6.10); RED CELL DISTRIBUTION WIDTH 16.3 % (11.5-14.5); WHITE BLOOD COUNT 6.7 X10'3 (4.5-11.0)
[2022-05-23 01:12] LABS: ALANINE AMINOTRANSFERASE 32 U/L (12-78); ALBUMIN/GLOBULIN RATIO 0.7 (1.1-1.5); ALKALINE PHOSPHATASE 142 IU/L (46-116); ANION GAP 8 (8-16); ASPARTATE AMINO TRANSFERASE 20 U/L (10-37); BILIRUBIN,TOTAL 0.5 MG/DL (0.1-1.0); BLOOD UREA NITROGEN 17 MG/DL (7-18); BUN/CREATININE RATIO 18.9 (5.4-32.0); CALCIUM 8.9 MG/DL (8.5-10.1); CHLORIDE 98 MMOL/L (99-107); GLUCOSE 346 MG/DL (70-104); POTASSIUM 3.6 MMOL/L (3.5-5.1); SODIUM 136 MMOL/L (135-145); TOTAL PROTEIN 7.4 G/DL (6.4-8.2); eGFR 83 ML/MIN
[2022-05-23] MEDS ORDERED: normal saline 1000ML IV soln IV ONE (01:25)
[2022-05-23] MEDS ORDERED: CefTRIAXone 2gm/D5W 50ml BAG 50 ML IV ONE (01:25)
[2022-05-23 01:55] VITALS: BP 151/93
[2022-05-23] MEDS ORDERED: CEPH-585 PO ×2 (02:42)
== END 2022-05-23 03:27 | disposition home or self-care (01) ==
LOC: ER 22:18
DX: N39.0 Urinary tract infection, site not specified (principal); R32 Unspecified urinary incontinence; R41.82 Altered mental status, unspecified; I48.91 Unspecified atrial fibrillation; E11.9 Type 2 diabetes mellitus without complications; Z76.5 Malingerer [conscious simulation]; Z91.199 Patient's noncompliance with other medical treatment and regimen due to unspecified reason; Z87.440 Personal history of urinary (tract) infections; Z79.2 Long term (current) use of antibiotics; Z79.899 Other long term (current) drug therapy
CPT/HCPCS: 36415; 71045; 80053; 81001; 83605; 83880; 84145; 84484; 85025; 87040; 87088; 93005; 96365; 99284; J0696; J7030; 99285

== ENCOUNTER 2024-04-27 17:51 | Emergency (ER) | payer MEDICARE ==
[~2024-04-27] VITALS: Ht 170.2 cm; Wt 94.0 kg
[~2024-04-27 17:51] MED LIST changes: -CEPH-585 PO; -CIPR-202 PO
[2024-04-27 17:53] VITALS: TEMP 98.3
[2024-04-27 18:43] LABS: BASOPHILS # (AUTO) 0.1 X10'3 (0-0.2); BASOPHILS % (AUTO) 0.6 % (0-1); EOSINOPHILS # (AUTO) 0.1 X10'3 (0-0.9); EOSINOPHILS % (AUTO) 0.7 % (0-6); HEMATOCRIT 39.8 % (42.0-52.0); HEMOGLOBIN 13.5 g/dl (14.0-17.9); LYMPHOCYTES # (AUTO) 1.4 X10'3 (1.1-4.8); LYMPHOCYTES % (AUTO) 10.8 % (21-51); MEAN CORPUSCULAR HEMOGLOBIN 31.3 PG (27.0-31.0); MEAN CORPUSCULAR HGB CONC 33.8 g/dL (33.0-36.5); MEAN CORPUSCULAR VOLUME 92.8 FL (78-98); MEAN PLATELET VOLUME 8.6 FL (7.4-10.4); MONOCYTES # (AUTO) 0.7 X10'3 (0-0.9); MONOCYTES % (AUTO) 5.3 % (2-12); NEUTROPHILS % (AUTO) 82.6 % (42-75); PLATELET COUNT 245 X10'3 (140-440); RED BLOOD COUNT 4.29 X10'6 (4.70-6.10); WHITE BLOOD COUNT 13.3 X10'3 (4.5-11.0)
[2024-04-27 18:58] LABS: ALANINE AMINOTRANSFERASE 24 U/L (12-78); ALBUMIN 3.1 G/DL (3.4-5.0); ALBUMIN/GLOBULIN RATIO 0.7 (1.1-1.5); ALKALINE PHOSPHATASE 148 IU/L (46-116); ANION GAP 11 (8-16); ASPARTATE AMINO TRANSFERASE 24 U/L (10-37); BILIRUBIN,TOTAL 0.6 MG/DL (0.1-1.0); BLOOD UREA NITROGEN 34 MG/DL (7-18); BUN/CREATININE RATIO 29.6 (10.0-20.0); CALCIUM 8.9 MG/DL (8.5-10.1); CHLORIDE 95 MMOL/L (99-107); CREATININE 1.15 MG/DL (0.60-1.10); POTASSIUM 3.2 MMOL/L (3.5-5.1); SODIUM 135 MMOL/L (135-145); TOTAL CARBON DIOXIDE 28.8 MMOL/L (24-32); TOTAL PROTEIN 7.8 G/DL (6.4-8.2); eCRCL 53 ML/MIN; eGFR 62 ML/MIN
[2024-04-27 19:13] LABS: BILIRUBIN,URINE NEGATIVE (Neg); CLARITY,URINE CLOUDY (Clear); COLOR,URINE YELLOW (Yellow); GLUCOSE, URINE >=1000 mg/dl (Neg); KETONES,URINE NEGATIVE (Neg); LEUKOCYTE ESTERASE ,URINE MODERATE (Neg); NITRITES, URINE POSITIVE (Neg); OCCULT BLOOD,URINE SMALL (Neg); PROTEIN,URINE NEGATIVE (Neg); UROBILINOGEN,URINE 0.2 E.U/dL (0.2-1.0)
[2024-04-27 19:17] LABS: UA COLLECTION TYPE CLN CATCH MIDSTREAM
[2024-04-27 19:18] LABS: BACTERIA,URINE 3+ /HPF (Neg); SQUAMOUS EPITHELIAL CELL,UR FEW /LPF (FEW)
[2024-04-27 19:19] LABS: WBC,URINE TNTC /HPF (0-4)
[2024-04-27] MEDS: normal saline 1000ml 1,000 ML IVB ONE (19:43)
[2024-04-27 19:47] LABS: C-REACTIVE PROTEIN 7.93 MG/DL (0.0-0.5); MAGNESIUM 1.7 MG/DL (1.5-2.4)
[2024-04-27 20:01] LABS: GLUCOSE 508 MG/DL (70-104)
[2024-04-27] MEDS ORDERED: CefTRIAXone 250MG inj IV ONE (21:10)
[2024-04-27] MEDS ORDERED: CEFP100S9 PO (21:12)
[2024-04-27] MEDS: CefTRIAXone 2gm/D5W 50ml IV ONE (21:33)
[2024-04-27 22:02] VITALS: BP 127/77; PULSE 93; RESP 16; O2SAT 96
== END 2024-04-27 22:09 | disposition home or self-care (01) ==
LOC: ER 17:51
DX: E11.65 Type 2 diabetes mellitus with hyperglycemia (principal); E87.6 Hypokalemia; N39.0 Urinary tract infection, site not specified; I48.91 Unspecified atrial fibrillation; Z79.899 Other long term (current) drug therapy
CPT/HCPCS: 36415; 80053; 81001; 82948; 83735; 84484; 85025; 85651; 86140; 87088; 93005; 96361; 96365; 99285; J0696; J7030; 87077; 87186

== ENCOUNTER 2024-10-11 11:54 | Emergency (ER) | payer MEDICARE ==
[~2024-10-11] VITALS: Ht 182.9 cm; Wt 84.1 kg
[~2024-10-11 11:54] MED LIST changes: +CEFP100S9 PO; -FLO0.4C PO; +GLIP-299 PO; -GLIP10TA21 PO; +TAMS-55 PO
[2024-10-11 12:12] VITALS: TEMP 98.3
[2024-10-11 13:26] LABS: BASOPHILS # (AUTO) 0.1 X10'3 (0-0.2); EOSINOPHILS # (AUTO) 0.3 X10'3 (0-0.9); HEMATOCRIT 39.1 % (42.0-52.0); HEMOGLOBIN 12.9 g/dl (14.0-17.9); LYMPHOCYTES # (AUTO) 1.4 X10'3 (1.1-4.8); LYMPHOCYTES % (AUTO) 15.9 % (21-51); MEAN CORPUSCULAR HEMOGLOBIN 29.7 PG (27.0-31.0); MEAN CORPUSCULAR HGB CONC 32.9 g/dL (33.0-36.5); MEAN PLATELET VOLUME 8.6 FL (7.4-10.4); MONOCYTES # (AUTO) 0.3 X10'3 (0-0.9); MONOCYTES % (AUTO) 2.9 % (2-12); NEUTROPHILS # (AUTO) 6.7 X10'3 (1.8-7.7); NEUTROPHILS % (AUTO) 77.2 % (42-75); PLATELET COUNT 276 X10'3 (140-440); RED BLOOD COUNT 4.35 X10'6 (4.70-6.10); WHITE BLOOD COUNT 8.7 X10'3 (4.5-11.0)
[2024-10-11 13:43] LABS: ALANINE AMINOTRANSFERASE 26 U/L (12-78); ALBUMIN/GLOBULIN RATIO 0.8 (1.1-1.5); ALKALINE PHOSPHATASE 144 IU/L (46-116); ANION GAP 9 (8-16); ASPARTATE AMINO TRANSFERASE 18 U/L (10-37); BILIRUBIN,TOTAL 0.4 MG/DL (0.1-1.0); BLOOD UREA NITROGEN 32 MG/DL (7-18); BUN/CREATININE RATIO 23.7 (10.0-20.0); CALCIUM 8.9 MG/DL (8.5-10.1); CHLORIDE 101 MMOL/L (99-107); CREATININE 1.35 MG/DL (0.60-1.10); LIPASE 52 U/L (16-77); POTASSIUM 4.4 MMOL/L (3.5-5.1); SODIUM 142 MMOL/L (135-145); TOTAL CARBON DIOXIDE 31.6 MMOL/L (24-32); TOTAL PROTEIN 6.9 G/DL (6.4-8.2); eCRCL 52 ML/MIN; eGFR 52 ML/MIN
[2024-10-11 13:46] LABS: GLUCOSE 598 MG/DL (70-104)
[2024-10-11] MEDS: normal saline 1000ml 1,000 ML IV ONE (14:52)
[2024-10-11] MEDS: insulin regular, human 10 units/0.1 ml syringe IV ONE (14:56)
[2024-10-11 15:42] LABS: BILIRUBIN,URINE NEGATIVE (Neg); CLARITY,URINE CLOUDY (Clear); COLOR,URINE YELLOW (Yellow); GLUCOSE, URINE >=1000 mg/dl (Neg); KETONES,URINE NEGATIVE (Neg); LEUKOCYTE ESTERASE ,URINE SMALL (Neg); OCCULT BLOOD,URINE SMALL (Neg); PROTEIN,URINE TRACE mg/dl (Neg); UROBILINOGEN,URINE 0.2 E.U/dL (0.2-1.0)
[2024-10-11 15:49] LABS: NITRITES, URINE NEGATIVE (Neg); UA COLLECTION TYPE URINAL
[2024-10-11 15:50] LABS: WBC,URINE TNTC /HPF (0-4)
[2024-10-11 15:51] LABS: BACTERIA,URINE 4+ /HPF (Neg); SQUAMOUS EPITHELIAL CELL,UR FEW /LPF (FEW)
[2024-10-11] MEDS: CefTRIAXone/D5W-Rocephin 1gm 50 ML IV ONE (16:18)
--- NOTE | 2024-10-11 16:42 | Physician Documentation ---
History of Present Illness ~ Chief Complaint: Hyperglycemia Stated Complaint: HIGH BLOOD SUGAR Time Seen by MD: 14:04 Primary Medical Doctor: beau Mode of Arrival: POV, Ambulatory HPI 74-year-old male who presents to the emergency department with a complaint of elevated blood sugar, apparently he has been out of his diabetic medications for the past two weeks. Timing/Duration: days Severity: moderate Complaint: high blood sugar, polyuria, polydipsia; Denies: nausea, vomiting Context: Denies: recent illness, decreased food intake, dietary indiscretion Medication Use: stopped History Of: IDDM Assoicated Symptoms: none Medication Reconciliation Allergies: Coded Allergies: No Known Allergies (Unverified , 10/11/24) Scheduled Apixaban (Eliquis), 1 TAB PO Q12H, (Reported) Atorvastatin Calcium* (Lipitor*), 1 TABLET PO HS, (Reported) Carvedilol* (Coreg*), 1 TABLET PO BID, (Reported) Cefpodoxime Proxetil (Cefpodoxime Proxetil), 1 TAB PO Q12H Dapagliflozin Propanediol (Farxiga), 1 TAB PO DAILY, (Reported) Donepezil Hcl (Donepezil Hcl), 1 TAB PO DAILY, (Reported) Glipizide (Glipizide ER), 1 TAB PO DAILY, (Reported) Insulin Glargine,Hum.rec.anlog* (Lantus*), 20 UNITS SQ HS, (Reported) Lisinopril* (Lisinopril*), 1 TAB PO DAILY, (Reported) Metformin HCl (Metformin HCl), 1 TAB PO Q12H, (Reported) Tamsulosin Hcl* (Flomax*), 1 CAP PO DAILY, (Reported) Past Medical History Past Medical History: Atrial Fibrillation, UTI, Diabetes Past Surgical History: noncontributory Smoking Status: Never smoker Lives In: Home Review of Systems All Other Systems at this time: Reviewed and Negative Constitutional: Reports: no symptoms reported, see HPI ENT: Reports: no symptoms reported Respiratory: Reports: no symptoms reported Cardiovascular: Reports: no symptoms reported, see HPI Endocrine: Reports: see HPI Physical Exam Vital Signs: RN Vital Signs have been reviewed: Yes, Temperature: 98.3, Source: Oral, Heart Rate: 60, Respiratory Rate: 15, BP: 98/57, Pulse Oximetry: 93, Weight: 84.090 Pulse Oximetry Reflects: adequate oxygenation, hypoxemia General Appearance: alert ENT: normal ENT inspection, moist mucous membranes Neck: non-tender, full range of motion, supple Respiratory: lungs clear, normal breath sounds, no respiratory distress Cardiovascular: normal peripheral pulses, regular rate, rhythm, no edema Gastrointestinal: normal palpation, non-tender, bowels sounds present Lymphatic: no adenopathy Progress Results/Orders Results/Orders Orders - DIAN MOTA DO * Iv Access / Saline Lock * (10/11/24 14:05) * Blood Glucose Assessment * ACHS (10/11/24 15:05) Cult Urine + [place] [address] (10/11/24 15:51) Culture Blood (10/11/24 15:53) * Blood Glucose Assessment * ACHS (10/11/24 16:58) Completed Orders - DIAN MOTA DO Cbc/Diff (10/11/24 12:26) BMP (10/11/24 12:26) Lipase (10/11/24 12:26) CMP (10/11/24 12:26) Normal Saline 1000ml (Sodium Chloride 10 (10/11/24 14:05) Insulin Regular, Human (Humulin R 10 Uni (10/11/24 14:05) Ua W/Microscopic, Cult If Ind (10/11/24 14:49) Ceftriaxone/R0y-Ehthopme 1gm (Rocephin 1 (10/11/24 15:55) Lacticsepsis (10/11/24 15:53) Medications Received in ER Medications (Trade) Dose Ordered Sig/Vale Route PRN Reason Start Time Stop Time Status Last Admin Dose Admin Sodium Chloride 1,000 ml @ 1,000 mls/hr ONCE ONCE IV 10/11/24 14:05 10/11/24 15:04 DC 10/11/24 14:52 1,000 MLS/HR (HumuLIN R 10 units per 0.1 ML syringe) 10 units ONCE ONCE IV 10/11/24 14:05 10/11/24 14:08 DC 10/11/24 14:56 10 UNITS Ceftriaxone Sodium 50 ml @ 100 mls/hr ONCE ONCE IV 10/11/24 15:55 10/11/24 16:24 DC 10/11/24 16:18 100 MLS/HR Vital Signs 10/11/24 10/11/24 10/11/24 12:12 13:21 13:59 Temp 98.3 Pulse 66 60 Resp 14 18 15 B/P (MAP) 98/57 Pulse Ox 91 93 Laboratory Tests Test 10/11/24 12:14 10/11/24 13:13 10/11/24 14:49 10/11/24 14:54 Glucometer 564 *H 566 *H White Blood Count 8.7 Red Blood Count 4.35 L Hemoglobin 12.9 L Hematocrit 39.1 L Mean Corpuscular Volume 90.0 Mean Corpuscular Hemoglobin 29.7 Mean Corpuscular Hemoglobin Concent 32.9 L Red Cell Distribution Width 17.0 H Platelet Count 276 Mean Platelet Volume 8.6 Neutrophils (%) (Auto) 77.2 H Lymphocytes (%) (Auto) 15.9 L Monocytes (%) (Auto) 2.9 Eosinophils (%) (Auto) 3.0 Basophils (%) (Auto) 1.0 Neutrophils # (Auto) 6.7 Lymphocytes # (Auto) 1.4 Monocytes # (Auto) 0.3 Eosinophils # (Auto) 0.3 Basophils # (Auto) 0.1 CBC Comment Sodium Level 142 Potassium Level 4.4 Chloride Level 101 Carbon Dioxide Level 31.6 Anion Gap 9 Blood Urea Nitrogen 32 H Creatinine 1.35 H Estimated GFR/1.73 m2 52 BUN/Creatinine Ratio 23.7 H Glucose Level 598 *H Calcium Level 8.9 Total Bilirubin 0.4 Aspartate Amino Transf (AST/SGOT) 18 Alanine Aminotransferase (ALT/SGPT) 26 Alkaline Phosphatase 144 H Total Protein 6.9 Albumin 3.0 L Globulin 3.9 Albumin/Globulin Ratio 0.8 L Lipase 52 Chemistry Comments Urine Specimen Description Urinal Urine Color Yellow Urine Clarity Cloudy Urine pH 6.0 Urine Specific [place] 1.010 Urine Protein Trace Urine Glucose (UA) >=1000 H Urine Ketones Negative Urine Occult Blood Small Urine Nitrite Negative Urine Bilirubin Negative Urine Urobilinogen 0.2 Urine Leukocyte Esterase Small H Urine RBC 3-10 Urine WBC Tntc H Urine Squamous Epithelial Cells Few Urine Bacteria 4+ Urine Culture Indicated Indicated Volume Urine Centrifuged 10 ml Urine Comment Test 10/11/24 16:07 10/11/24 17:00 Lactic Acid Level 1.8 Glucometer 238 H Microbiology Date/Time Source Procedure Growth Status 10/11/24 15:51 Urine Urinal (Er Only) Urine Culture - Preliminary Culture received. Resulted Departure Disposition: HOME / SELF CARE / HOMELESS Impression: Primary Impression: Hyperglycemia Additional Impression: UTI (urinary tract infection) Condition: Improved Discharge Instructions: Hyperglycemia, Phkd-pd-Sgih, Diabetes, Sick Day Management, Urinary Tract Infection, Adult Referrals: NO PRIMARY CARE PROVIDER (PCP) Prescriptions Cephalexin*Monohydrate* (Keflex*) 500 Mg Capsule 1 CAP PO QID for 7 Days, #28 CAP Prov: DIAN MOTA DO 10/11/24 Insulin Aspart (Insulin Aspart Flexpen) 100 Unit/Ml (3 Ml) Insuln.pen 2 UNITS SQ TID for sliding scale for 30 Days, #1 EACH Prov: DIAN MOTA DO 10/11/24 Insulin Glargine,Hum.rec.anlog* (Lantus*) 100 Unit/1 Ml Vial 12 UNITS SUBCUT HS for 30 Days, #5 ML Prov: DIAN MOTA DO 10/11/24 Education Educated: Patient, Family Educated regarding: diagnosis, treatment Signature Scribe Signature: None Attestation: Dictated by myself DIAN MOTA DO October 11, 2024 16:42
[2024-10-11] MEDS ORDERED: INSU100I52 SQ (17:42)
[2024-10-11] MEDS ORDERED: LANTUS SUBCUT (17:42)
[2024-10-11] MEDS ORDERED: CEPH-585 PO (17:43)
[2024-10-11 17:51] VITALS: BP 132/79; PULSE 61; RESP 15; O2SAT 99
== END 2024-10-11 17:56 | disposition home or self-care (01) ==
LOC: ER 11:55
DX: E11.65 Type 2 diabetes mellitus with hyperglycemia (principal); N39.0 Urinary tract infection, site not specified; I48.91 Unspecified atrial fibrillation
CPT/HCPCS: 36415; 80053; 81001; 82948; 83605; 83690; 85025; 87040; 87077; 87088; 87186; 96361; 96365; 96375; 99284; J0696; J1815; J7030

== ENCOUNTER 2025-03-02 15:45 | Emergency (ER) | payer MEDICARE ==
[~2025-03-02] VITALS: Ht 182.9 cm; Wt 87.5 kg
[~2025-03-02 15:45] MED LIST changes: -APIX5TAB3 PO; -CARV-50 PO; -CEFP100S9 PO; -DAPA10TA PO; -DONE-46 PO; +DONE-53 PO; +FURO-150 PO; -GLIP-299 PO; -LANTUS SQ; -LISI40TA13 PO; +METF-436 PO; -METF-438 PO; +METO50TA7 PO; +POTA8TAB69 PO; +SACU1TAB7 PO; +SERT25TA PO; -TAMS-55 PO; +TRAM50TA2 PO; +WARF6TAB49 PO; +ZAR2.5T PO
[2025-03-02 15:56] VITALS: BP 114/84; PULSE 63; RESP 18; TEMP 97.3; O2SAT 99
--- NOTE | 2025-03-02 16:25 | RADIOLOGY REPORT ---
CLINICAL INDICATION: Shoulder Pain,RIGHT TECHNIQUE: DI SHOULDER, COMPLETE (MIN 2 VWS) Comparison: None FINDINGS/IMPRESSION: : There is no evidence of acute fracture or dislocation. Soft tissues are unremarkable. Moderate degenerative changes of the shoulder joint.
--- NOTE | 2025-03-02 17:32 | Physician Documentation ---
History of Present Illness ~ Chief Complaint: Shoulder pain Stated Complaint: FALL Time Seen by MD: 17:14 Primary Medical Doctor: Dot Primary care HPI Patient is seen today with complaints of pain in his right shoulder after suffering a ground level fall when he forgot to use his walker while in his trailer. Patient is seen today with family member the states this happened just yesterday. They also state patient needs a dose of Lantus 20 units today as they state his blood sugar recently was just over 200. Patient has no other concern or complaint at this time. Tetanus within 5 years?: No Medication Reconciliation Allergies: Coded Allergies: No Known Allergies (Unverified , 10/11/24) Scheduled Atorvastatin Calcium* (Lipitor*), 1 TAB PO DAILY, (Reported) Donepezil Hcl (Donepezil Hcl), 1 TAB PO DAILY, (Reported) Furosemide* (Lasix*), 1 TAB PO DAILY, (Reported) Metformin Hcl (Metformin Hcl), 2 TAB PO Q12H, (Reported) Metolazone (ZAROXOLYN tablet), 1 TAB PO DAILY, (Reported) Metoprolol Succinate* (Toprol Xl*), 1 TAB PO DAILY, (Reported) Potassium Chloride (Klor-Con 8), 1 TAB PO DAILY, (Reported) Sacubitril/Valsartan (Entresto 49 mg-51 mg Tablet), 1 TAB PO Q12H, (Reported) Sertraline Hcl* (Zoloft*), 1 TAB PO DAILY, (Reported) Warfarin Sodium (Warfarin Sodium), 1 TAB PO HS, (Reported) Scheduled PRN Tramadol HCl (Tramadol HCl), 1 TAB PO Q6H PRN PRN for pain, (Reported) Past Medical History Past Medical History: Atrial Fibrillation, UTI, Diabetes Past Surgical History: noncontributory Patient History: Patient reports no known family medical history. Lives In: Home Review of Systems Constitutional: Denies: chills, fever, weakness Eyes: Denies: pain, blurred vision ENT: Denies: ear pain, nose pain, throat pain, mouth pain Respiratory: Denies: cough, shortness of breath Cardiovascular: Denies: chest pain, palpitations Gastrointestinal: Denies: abdominal pain, nausea, vomiting Genitourinary: Denies: burning, dysuria Male Genitalia: Denies: penile discharge, testicular pain Neurological: Denies: headache, dizziness Musculoskeletal: Denies: pain, swelling Integumentary: Denies: rash, lesions Allergic/Immunologic: Denies: hives, itching Hematologic/Lymphatic: Denies: no symptoms reported Psychiatric: Denies: depression, anxiety Physical Exam Vital Signs: Temperature: 97.3, Source: Temporal, Heart Rate: 63, Respiratory Rate: 18, BP: 114/84, Pulse Oximetry: 99, Weight: 87.500 Oxygen Flow Rate: 0 Physical Exam General: Awake and Alert, no acute distress. HEENT: Conjunctiva pink, Sclera clear, Mucus Membranes moist. Neck: Supple without masses and tenderness. Resp: Unlabored. Lungs clear to auscultation bilaterally. Heart: Regular Rate and rhythm, normal S1 and S2 without murmur, rub or gallop. Musculoskeletal: Patient on exam does have decreased range of motion of the right shoulder due to pain. Patient is neurovascularly intact distally. Motor function intact distally. Extremities: No cyanosis,clubbing or edema. Skin: Warm and Dry. Progress Results/Orders Results/Orders Vital Signs 03/02/25 15:56 Temp 97.3 Pulse 63 Resp 18 B/P (MAP) 114/84 Pulse Ox 99 O2 Flow Rate 0 Medical Decision Making Findings Patient is seen today with complaints of pain in his right shoulder after suffering a ground level fall when he forgot to use his walker while in his trailer. Patient is seen today with family member the states this happened just yesterday. They also state patient needs a dose of Lantus 20 units today as they state his blood sugar recently was just over 200. Patient has no other concern or complaint at this time. Patient was given dose of Lantus 20 units in the ED today per patient's family member who states that is his normal daily dose. X-ray of right shoulder in the ED today showed no sign of acute fracture. Patient will follow up with primary care in 2-5 days if no better as needed sooner. Return to ED with any worseni ng, concerning or changing symptoms. Departure Disposition: HOME / SELF CARE / HOMELESS Impression: Primary Impression: Shoulder pain Qualified Codes: M25.511 - Pain in right shoulder Additional Impression: Hyperglycemia Condition: Stable Discharge Instructions: Shoulder Pain, Lpqk-hv-Eqrx Additional Instructions: Patient was given dose of Lantus 20 units in the ED today per patient's family member who states that is his normal daily dose. X-ray of right shoulder in the ED today showed no sign of acute fracture. Patient will follow up with primary care in 2-5 days if no better as needed sooner. Return to ED with any worsening, concerning or changing symptoms. Referrals: NO PRIMARY CARE PROVIDER (PCP) Signature Scribe Signature: No scribe Attestation: No scribe DAGMAR MARTINEZ PAC Mar 02, 2025 17:32
[2025-03-02] MEDS: insulin glargine (Lantus) pen - multi-dose SQ STA (18:14)
== END 2025-03-02 18:22 | disposition home or self-care (01) ==
LOC: ER 15:45
DX: M25.511 Pain in right shoulder (principal); E11.65 Type 2 diabetes mellitus with hyperglycemia; I48.91 Unspecified atrial fibrillation; Z79.899 Other long term (current) drug therapy; Z79.84 Long term (current) use of oral hypoglycemic drugs
CPT/HCPCS: 73030; 82948; 99284; J1815

== ENCOUNTER 2025-05-04 17:04 | Inpatient (IN) | payer MEDICARE ==
[~2025-05-04] VITALS: Ht 182.9 cm; Wt 88.0 kg
[~2025-05-04 17:04] MED LIST changes: +INSU100I99 SQ; -ZAR2.5T PO
--- NOTE | 2025-05-04 17:14 | ELECTROCARDIOGRAPH REPORT ---
[facility] Test Date: 2025-05-04 Test Time: 17:08:35 Pat Name: SHIN FLORES Department: EMERGENCY ROOM Room: [place] [address] Gender: M Manager General: PETER : 1950 Requested By: OLE GARCIA Order Number: [id number] Reading MD: Dr. CAROL Waters Measurements Intervals [place] Rate: 81 P: 31 CA: 197 QRS: 81 QRSD: 105 T: 16 QT: 420 QTc: 488 Interpretive Statements Sinus rhythm Supraventricular bigeminy Borderline right axis deviation Electronically Signed On 05-05-2025 17:08:[address] CAROL Waters Please click the below link to view image of tracing.
--- NOTE | 2025-05-04 17:18 | Physician Documentation ---
History of Present Illness General Chief Complaint: ALOC Stated Complaint: ALOC Time Seen by MD: 17:09 Primary Medical Doctor: Dot Primary care History of Present Illness Initial Comments The patient is a 74-year-old male brought in by EMS for confusion. The patient has been increasingly confused over last 48 hours and he has become immobile over last 24 hours. The patient has been complaining of right shoulder pain. Patient states pain has been there about a week. The patient states the pain is worse when he moves it he denies any trauma. The the patient denies any other pain. The history was prior minimally provided by EMS. Medication Reconciliation Allergies: Coded Allergies: No Known Allergies (Unverified , 04/04/25) Scheduled Atorvastatin Calcium* (Lipitor*), 1 TAB PO DAILY, (Reported) Donepezil Hcl (Donepezil Hcl), 1 TAB PO DAILY, (Reported) Furosemide* (Lasix*), 1 TAB PO DAILY, (Reported) Insulin Glargine-Yfgn (Insulin Glargine-Yfgn), 10 SQ HS, (Reported) Metformin Hcl (Metformin Hcl), 2 TAB PO Q12H, (Reported) Metoprolol Succinate* (Toprol Xl*), 2 TAB PO DAILY, (Reported) Potassium Chloride (Klor-Con 8), 1 TAB PO DAILY, (Reported) Spironolactone (Spironolactone), 1 TAB PO DAILY, (Reported) Warfarin Sodium (Warfarin Sodium), 1 TAB PO DAILY, (Reported) [Sacubitril-Valsartan], 1 TAB PO BID, (Reported) [Tamsulosin], 1 CAP PO DAILY, (Reported) Scheduled PRN Tramadol HCl (Tramadol HCl), 1 TAB PO Q6H PRN PRN for pain, (Reported) Discontinued Medications Metoprolol Succinate* (Toprol Xl*), 1 TAB PO DAILY Discontinued Reason: Prescription changed Sacubitril/Valsartan (Entresto 49 mg-51 mg Tablet), 1 TAB PO Q12H, (Reported) Discontinued Reason: Other Sertraline Hcl* (Zoloft*), 1 TAB PO DAILY, (Reported) Discontinued Reason: Other Warfarin Sodium (Warfarin Sodium), 1 TAB PO HS, (Reported) Discontinued Reason: Prescription changed Past Medical History Past Medical History: Atrial Fibrillation, UTI, Diabetes Past Surgical History: noncontributory Lives In: Home Review of Systems Unable to obtain complete ROS: altered mental status Physical Exam Physical Exam Vital Signs: Temperature: 97.8, Source: Oral, Heart Rate: 82, Respiratory Rate: 17, BP: 140/82, Pulse Oximetry: 98, Weight: 88.000 Oxygen Flow Rate: 0 Physical Exam VITALS: Reviewed and as above. GENERAL: Somnolent but eyes are open HEENT: Normocephalic, atraumatic, PERRL, EOMI, dry mucosa, no erythema RESPIRATORY: Lungs clear, normal breath sounds, no respiratory distress. CHEST: No accessory muscle use, no retractions CV: Regular rate, rhythm, no edema, no murmur, No: JVD GI: Soft, non-tender, bowels sounds present, no rebound, guarding, or rigidity BACK: No CVA tenderness, or swelling MUSCULOSKELETAL: Pain with range of motion of the right shoulder right shoulder effusion appreciated SKIN: Warm and dry, no rash NEURO: Oriented x one, No motor or sensory deficit PSYCH: Normal mood and affect, no agitation Progress Results/Orders Results/Orders Orders - OLE GARCIA MD Electrocardiogram (05/04/25 17:09) Culture Blood (05/04/25 17:09) Chest,Single View (05/04/25 17:37) Shoulder, Complete (Min 2 Vws) (05/04/25 17:18) Cult (Aer) Routine C&S+Gram St (05/04/25 17:57) Completed Orders - OLE GARCIA MD Electrocardiogram (05/04/25 17:09) Cbc/Diff (05/04/25 17:09) MG (05/04/25 17:09) Chest,Single View (05/04/25 17:37) Procalcitonin (05/04/25 17:09) BMP (05/04/25 17:09) Hs Troponin I W Calculations (05/04/25 17:09) Lacticsepsis (05/04/25 17:09) Normal Saline 1000ml (0.9% Sodium Chlori (05/04/25 17:10) C-Reactive Protein (05/04/25 17:21) Shoulder, Complete (Min 2 Vws) (05/04/25 17:18) Ua W/Microscopic, Cult If Ind (05/04/25 17:20) Cult Urine + [address] Ct (05/04/25 17:57) Culture Body Fluid Order (05/04/25 17:57) Synovial Fld. Cell Ct (05/04/25 17:57) Synovial Fld Crystals (05/04/25 17:57) Ceftriaxone/O3w-Uxaaifuf 1gm (Rocephin 1 (05/04/25 18:10) PBNP (05/04/25 17:26) Vital Signs 05/04/25 05/04/25 05/04/25 17:05 17:07 18:55 Temp 97.8 97.8 Pulse 82 88 Resp 22 17 24 B/P (MAP) 140/82 156/83 (107) Pulse Ox 98 97 O2 Flow Rate 0 0 Laboratory Tests Test 05/04/25 17:20 05/04/25 17:26 05/04/25 17:57 Urine Specimen Description Cln catch midstream Urine Color Yellow Urine Clarity Clear Urine pH 6.0 Urine Specific [place] 1.020 Urine Protein >=300 H Urine Glucose (UA) 500 H Urine Ketones Negative Urine Occult Blood Moderate H Urine Nitrite Negative Urine Bilirubin Negative Urine Urobilinogen 0.2 Urine Leukocyte Esterase Negative Urine RBC 10-20 Urine WBC 20-30 H Urine Squamous Epithelial Cells Moderate Urine Bacteria 3+ Urine Yeast Few Urine Culture Indicated Indicated Volume Urine Centrifuged 10 ml Urine Comment White Blood Count 10.6 Red Blood Count 3.78 L Hemoglobin 11.4 L Hematocrit 33.7 L Mean Corpuscular Volume 89.2 Mean Corpuscular Hemoglobin 30.1 Mean Corpuscular Hemoglobin Concent 33.7 Red Cell Distribution Width 17.7 H Platelet Count 225 Mean Platelet Volume 8.2 Neutrophils (%) (Auto) 83.3 H Lymphocytes (%) (Auto) 10.5 L Monocytes (%) (Auto) 3.6 Eosinophils (%) (Auto) 1.9 Basophils (%) (Auto) 0.7 Neutrophils # (Auto) 8.8 H Lymphocytes # (Auto) 1.1 Monocytes # (Auto) 0.4 Eosinophils # (Auto) 0.2 Basophils # (Auto) 0.1 CBC Comment Sodium Level 141 Potassium Level 4.0 Chloride Level 107 Carbon Dioxide Level 26.0 Anion Gap 8 Blood Urea Nitrogen 20 H Creatinine 0.91 Estimated GFR/1.73 m2 81 BUN/Creatinine Ratio 22.0 H Glucose Level 306 H Lactic Acid Level 1.9 Calcium Level 7.9 L Magnesium Level 1.5 Troponin I High Sensitivity 12 C-Reactive Protein 5.47 H Pro-B-Type Natriuretic Peptide 4983 H Albumin 2.5 L Procalcitonin < 0.05 Chemistry Comments Synovial Fluid Source Right shoulder Synovial Fluid Color Yellow Synovial Fluid Appearance Cloudy Synovial Fluid WBC 29319 Synovial Fluid RBC 25642 Synovial Fluid Neutrophils 95 H Synovial Fluid Lymphocytes 1 Synovial Fluid Monocytes 4 H Synovial Fluid Other Cells Few Synovial Fluid Crystal Quantity No crystals seen Synovial Fluid Fibrin Clot See note Microbiology Date/Time Source Procedure Growth Status 05/04/25 18:04 Print Internal Inquiry - Final Complete 05/04/25 17:57 Shoulder Right Synovial Fluid Routine Culture - Preliminary Resulted 05/04/25 17:57 Urine Clean Catch Midstream Urine Culture - Final MIXED HELLEN ISOLATED.... Complete 05/04/25 17:54 Blood Arm Left Blood Culture - Preliminary NO GROWTH AFTER 1 DAY Resulted Medical Decision Making Additional information obtaine: old records Findings The patient has a right shoulder effusion and history of pain without trauma the patient had his right shoulder prepped with a chlorhexidine and Betadine 5 cc of 1% lidocaine with epinephrine were infiltrated anteriorly and the patient had 3 cc of serous fluid withdrawn for cell count and crystal analysis and another CC and a half sent for culture Received care of patient. Self count suggest inflammatory process and not infectious process and this is supported by lack of procalcitonin or elevation of white blood cell count and vital signs are stable. Patient does have a urinary tract infections and antibiotics has been initiated and. I have low suspicion of stroke. Differential Diagnosis Metabolic encephalopathy, urinary tract infection, stroke, medication side effect Departure Admitted to Inpatient Unit: yes, to hospitalist Impression: Primary Impression: Altered mental status Qualified Codes: R41.82 - Altered mental status, unspecified Additional Impression: UTI (urinary tract infection) Qualified Codes: N39.0 - Urinary tract infection, site not specified Condition: Guarded Referrals: NO PRIMARY CARE PROVIDER (PCP) Additional Comment Additional Comment The patience EKG was interpreted by me to show a sinus rhythm with sinus by bri and a normal axis, there was no sT elevation or depression. EKG was interpreted as a abnormal EKG with a rate of 81. The patient's pulse oximetry was interpreted as normal and adequate Signature Scribe Signature: No scribe Attestation: The note accurately reflects work and decisions made by me.Marques Gudino MD 05/04/25 20:02 [facility] May 04, 2025 17:18 MARQUES GUDINO MD May 04, 2025 20:03
[2025-05-04] MEDS: normal saline 1000ML IV soln IVB ONE (17:38)
[2025-05-04 17:43] LABS: MEAN PLATELET VOLUME 8.2 FL (7.4-10.4); RED CELL DISTRIBUTION WIDTH 17.7 % (11.5-14.5)
[2025-05-04 17:44] LABS: LEUKOCYTE ESTERASE ,URINE NEGATIVE (Neg); NITRITES, URINE NEGATIVE (Neg); OCCULT BLOOD,URINE MODERATE (Neg)
[2025-05-04 17:49] LABS: UA COLLECTION TYPE CLN CATCH MIDSTREAM
--- NOTE | 2025-05-04 17:51 | RADIOLOGY REPORT ---
Indication: PAIN RIGHT Technique: DI SHOULDER, COMPLETE (MIN 2 VWS)SHOULDERCM Comparison: None FINDINGS/IMPRESSION: No radiographic evidence for acute fracture or dislocation. Moderate right AC joint arthrosis. Moderate right glenohumeral joint arthrosis. Cervical/ upper thoracic fusion hardware. Aortic atherosclerotic disease. Patchy pulmonary airspace opacities. Chronic appearing posterior right 7th, 8th rib fractures. Correlate with point tenderness.
--- NOTE | 2025-05-04 17:52 | RADIOLOGY REPORT ---
CHEST RADIOGRAPH Indication: SEPSIS Technique: DI CHEST,SINGLE VIEW COMPARISON: None FINDINGS: The cardiac silhouette is enlarged. The lungs demonstrate bilateral patchy airspace opacities. The pulmonary vasculature is prominent. There is no pleural effusion. There is no pneumothorax. Cervical/ thoracic fusion hardware. IMPRESSION: Cardiomegaly with pulmonary vascular congestion and bilateral patchy airspace opacities.
[2025-05-04 17:54] LABS: SQUAMOUS EPITHELIAL CELL,UR MODERATE /LPF (FEW)
[2025-05-04 17:55] LABS: CREATININE 0.91 MG/DL (0.60-1.10); TOTAL CARBON DIOXIDE 26.0 MMOL/L (24-32); eCRCL 77 ML/MIN; eGFR 81 ML/MIN
[2025-05-04 17:56] LABS: YEAST FEW /HPF (NEGATIVE)
[2025-05-04] MEDS: CefTRIAXone/D5W-Rocephin 1gm 50 ML IV ONE (18:24)
[2025-05-04 19:17] LABS: APPEARANCE,SYNOVIAL FLUID CLOUDY; COLOR,SYNOVIAL FLUID YELLOW
[2025-05-04 19:19] LABS: LYMPHOCYTES,SYNOVIAL FLUID 1 % (0-75); MONOCYTES,SYNOVIAL FLUID 4 % (0-0); NEUTROPHILS,SYNOVIAL FLUID 95 % (0-25); SYN RBC 15500 /CU MM (0); SYN WBC 35500 /CU MM (0-200)
[2025-05-04 19:20] LABS: OTHER CELLS, SYNOVIAL FLUID FEW
[2025-05-04 19:25] LABS: SYNOVIAL FLUID CRYSTALS QT NO CRYSTALS SEEN
[2025-05-04] MEDS ORDERED: magnesium hydroxide 30ml (MOM) UD suspension PO PRN (20:10)
[2025-05-04] MEDS ORDERED: potassium Cl 40MEQ/1/2NS 520ml 520 ML IV PRN (20:10)
[2025-05-04] MEDS ORDERED: potassium Cl 20 mEq SR tablet PO PRN (20:10)
[2025-05-04] MEDS ORDERED: magnesium sulf-water 2g/50mL 50 ML IV PRN (20:10)
[2025-05-04] MEDS ORDERED: mag hydrox/Alum hydrox/simeth 30ml oral suspension PO PRN (20:10)
[2025-05-04] MEDS ORDERED: magnesium Cl slow-release 64mg tablet PO PRN (20:10)
[2025-05-04] MEDS ORDERED: magnesium sulf-water 4G/100mL 100 ML IV PRN (20:10)
[2025-05-04] MEDS ORDERED: ondansetron/PF 4mg/2ml inj IV PRN (20:10)
[2025-05-04] MEDS: normal saline 1000ml 1,000 ML IV SCH (20:56)
[2025-05-04] MEDS ORDERED: glucagon, human recombinant 1mg kit SUBCUT PRN (21:50)
[2025-05-04] MEDS ORDERED: DEXTROSE 15 GM of carb/4 tabs (each vial/BOTTLE has 4 tablets) PO PRN ×2 (21:50)
[2025-05-04] MEDS ORDERED: dextrose 50%-water 50ml dispensing syringe IV PRN ×2 (21:50)
[2025-05-04 22:03] LABS: PRO BRAIN NATRIURETIC PEPTIDE 4983 PG/ML (0-450)
[2025-05-04] MEDS: HYDROmorphone inj. 0.5 MG/0.5 ML DISP.SYRIN IV PRN (23:11)
[2025-05-04 23:18] VITALS: BP 161/93; PULSE 91; RESP 19; TEMP 97.4; O2SAT 93
--- NOTE | 2025-05-04 23:28 | RADIOLOGY REPORT ---
EXAM: CT CT CHEST History: Bilateral airspace disease Comparison Study: DI CHEST,SINGLE VIEW on DOS: 05/04/25, DI CHEST,SINGLE VIEW on DOS: 04/16/25, DI CHEST,SINGLE VIEW on DOS: 04/04/25, DI CHEST,SINGLE VIEW on DOS: 01/10/25, CHEST,SINGLE VIEW on DOS: 05/23/22 TECHNIQUE: Multidetector CT of the chest was performed. Imaging was performed without IV contrast. Axial, coronal, and sagittal multiplanar reformats were obtained from the axial data set by the technologist. Radiation Dose : CTDI vol 18.7 mGy, DLP 645.6 mGy*cm. Findings: Evaluation is degraded by respiratory motion. Lungs/pleura: Small right pleural effusion with adjacent opacity. Dependent bilateral lower lobe opacities. Interlobular septal thickening most pronounced at the lung apices. Probable bilateral lower lobe mucoid impaction, suboptimally assessed given artifact. Heart/Great vessels: There is cardiomegaly. There are moderate coronary artery calcifications. There are mild atherosclerotic calcifications of the aorta. Mediastinum: Borderline mediastinal nodes.. Soft tissues/Bones: Thoracic fusion hardware is noted. Thoracic dish. Upper abdomen: Unremarkable. Impression: 1. Small right pleural effusion with adjacent opacity. Findings as above suggestive of pulmonary vascular congestion with probable pulmonary edema. Superimposed infectious/inflammatory process cannot be entirely excluded. 2. Probable bilateral lower lobe mucoid impaction, suboptimally assessed. 3. Additional findings as detailed.
[2025-05-05] VITALS (9 sets, daily range): BP systolic 133–165; BP diastolic 59–96; PULSE 60–100; RESP 15–18; TEMP 97.1–99.4; O2SAT 94–98
--- NOTE | 2025-05-05 00:13 | HISTORY AND PHYSICAL-Residence ---
History & Physical Providers to CC Resident Creating Document: IGNACIO SCHMITZ, RES ~ History of Present Illness Primary Medical Doctor: Dot Primary care Reason for Admit\Complaint: Confusion History of Present Illness A 74-year-old male with dementia, type 2 diabetes, recurrent UTIs, paroxysmal atrial fibrillation on warfarin, HFrEF (EF 4045%) and chronic pain syndrome was brought to the ED for worsening confusion and decreased responsiveness over the past two days. Patient was confused and hence history has been obtained from his son. Patient's son reports he has been sleeping a lot, less interactive, and not close to his baseline cognition. He also noted shaking earlier in the day but no witnessed fall or focal weakness. He lives with his son and ambulated with a cane until this decline. The patient himself is oriented only to self and states he does not know why he is here. Denies fever, dysuria, abdominal pain, chest pain, vomiting, diarrhea, or respiratory symptoms. He was discharged on 04/07/2025 after treatment for encephalopathy secondary to UTI; his previous urine culture grew E. coli resistant to ceftriaxone but sensitive to meropenem, piperacillin-tazobactam and amoxicillin and he completed a course of IV meropenem at [facility]. In the ED today, glucose was 320 , WBC 10.4, CRP 5.47, procalcitonin negative. UA shows >300 protein, moderate occult blood, 2030 WBC, but nitrite and leukocyte esterase negative. CT head pending; chest X-ray shows cardiomegaly with pulmonary vascular congestion but no clinical signs of fluid overload. Son is concerned for possible stroke due to progressive lethargy. Allergies: Coded Allergies: No Known Allergies (Unverified , 04/04/25) Home Medications Home Medications Active Insulin Glargine-Yfgn 100 Unit/Ml (3 Ml) Insuln.pen 10 Unit SQ HS 30 Days 20 unit Toprol Xl* (Metoprolol Succinate) 50 Mg Tab.sr.24h 1 Tab PO DAILY 30 Days Reported Donepezil Hcl 5 Mg Tab.rapdis 1 Tab PO DAILY Lipitor* (Atorvastatin Calcium) 40 Mg Tablet 1 Tab PO DAILY Lasix* (Furosemide) 20 Mg Tablet 1 Tab PO DAILY Entresto 49 mg-51 mg Tablet (Sacubitril/Valsartan) 49 Mg-51 Mg Tablet 1 Tab PO Q12H Klor-Con 8 (Potassium Chloride) 8 Meq Tablet.er 1 Tab PO DAILY Zoloft* (Sertraline HCl) 25 Mg Tablet 1 Tab PO DAILY Tramadol HCl 50 Mg Tablet 1 Tab PO Q6H PRN PRN Warfarin Sodium 6 Mg Tablet 1 Tab PO HS Metformin Hcl 500 Mg Tablet 2 Tab PO Q12H Past Medical History Past Medical History As per previous medical records: Type 2 diabetes mellitus Recurrent UTIs, E coli Baseline dementia Paroxysmal AFib on warfarin Heart failure with reduced ejection fraction Chronic pain syndrome Past Surgical History Surgical History Comment Unable to be obtained Family History Family History: Patient reports no known family medical history. Past Social History Social History Comment No smoking, alcohol, recreational drug use Patient lives with son and [id number] Ambulates using a cane Lives In: Home ROS ROS Unable to be obtained Unable to obtain: altered mental status Exam Vitals: Vital Signs Date Time Temp Pulse Resp B/P (MAP) Pulse Ox O2 Delivery O2 Flow Rate FiO2 05/04/25 23:18 97.4 91 19 161/93 (115) 93 Room Air 05/04/25 20:35 0 General: Awake , alert, and oriented x1 HEENT: Atraumatic, normocephalic, EOMI, anicteric sclera ; pink conjunctiva Neck: Trachea midline. Supple, full range of motion, no JVD Cardiac: Regular rhythm, regular rate with no murmurs all over the precordium. Respiratory: Decreased breath sounds all over Gastrointestinal: Abdomen symmetric, non-distended, soft, non-tender, normal bowel sounds Musculoskeletal: No pedal edema, no cyanosis Neurological: Could not be performed Skin: Warm and dry Diagnostic Data Last Recorded Lab Results: 05/04/25 1726 05/04/25 1726 Advance Care Planning Advanced Care plannin - 30 Minutes Additional Plan 1. Acute metabolic Encephalopathy 2. Concern for Stroke Multifactorial :Hyperglycemia (glucose 320), baseline dementia, possible subclinical infection vs metabolic derangements No fever, procalcitonin negative, UA nonspecific; Stroke not yet excluded Plan Repeat neuro checks q4h CT head ordered, pending TSH, ammonia ordered Hold sedating medications Maintain fall precautions and delirium precautions As patient has been worsening gradually over the past 2 months, ordered MRI head Vascular carotid ultrasound ordered Neurology consult if concern for stroke continues Aspirin 81 mg daily ordered Atorvastatin 40 mg daily ordered Follow up with lipid panel Speech therapy bedside swallow eval ordered NPO until patient passes BSS 3. Recurrent UTI / Infectious Source 2/2 E coli sensitive to meropenem, Zosyn and amoxicillin UA abnormal (protein, occult blood, 2030 WBC) but no nitrite or leukocyte esterase No fever , procalcitonin negative Prior E. coli resistant to ceftriaxone, sensitive to meropenem, Zosyn, amoxicillin. Plan Pending urine cultures Blood cultures ordered Holding antibiotics for UTI patient completed course of meropenem 4. Type 2 Diabetes (A1C 7.3%) Glucose 320 mg/dL on arrival; unclear if due to stress, missed insulin, or incorrect dosing at SNF/home. Plan Ordered Lantus 20 units HS, lispro 3 units with a medium dose sliding scale insulin Inpatient glucose target between 140-180 Check glucose q4h 5. Paroxysmal Atrial Fibrillation on Warfarin Irwin Vasc score 3 Currently in sinus rhythm Rate-controlled on metoprolol succinate Needs INR monitoring No bleeding Plan PT, INR levels ordered Pharmacy to dose warfarin ordered Continue metoprolol succinate 50 mg daily after med rec Telemetry monitoring 6. Right Shoulder Pain- Septic Arthritis Acute severe right shoulder pain with synovial fluid showing WBC 35,500, RBC 15,500, 95% neutrophils- highly concerning for septic arthritis X-ray shows degenerative arthrosis Plan Orthopedic consult in am for evaluation and possible surgical washout Minimal fluid cultures ordered Initiated empiric IV antibiotics Vancomycin + Zosyn (as there is high concern for Gram-negative organisms from prior UTI- Ecoli sensitive to Zosyn) PT evaluation 6. HFrEF (EF 4045%) BNP declined from 6433 to 4983- still elevated, chronic HFrEF with congestion No overt fluid overload on exam but imaging suggests pulmonary edema CT chest: pulmonary edema, bilateral lower lobe mucoid impaction, no clear consolidation CXR with cardiomegaly + mild vascular congestion; patient not clinically volume overloaded Plan Continue home Entresto 49/51 mg BID, Metoprolol 50 mg daily after med rec Continue Lasix 20 mg p.o. daily Daily weights, strict I/O BMP daily to monitor electrolytes/renal function Currently not initiating any antibiotics unless fever, leukocytosis or new infiltrates develop 7. Baseline Dementia Chronic cognitive impairment, complicated by new metabolic/infectious triggers Plan Avoid anticholinergics, sedatives PT/OT evaluation 8. Chronic Pain Syndrome Avoid opioids or [employer] depressants Use acetaminophen as needed 9. Normocytic normochromic anemia Hemoglobin 11.4, has been stable around 11 over the past few months Iron studies ordered as RDW is elevated Vitamin B12 ordered Code Status: DNR (confirmed with son via phone call) DVT Prophylaxis: Warfarin Nutrition: NPO until BSS PT: Ordered Prognosis: Guarded Contact information: Saji (son): [phone] Ignacio Schmitz MD Internal Medicine Resident, PGY-2 Patient assessed and agree with the assessment and plan as above. I agree with the assessment and plan as above. Emma Ardon MD Date of Service: May 05, 2025 Billing Provider: EMMA ARDON MD, GAURAV, RES May 05, 2025 00:13 EMMA ARDON MD May 05, 2025 18:03
--- NOTE | 2025-05-05 00:43 | RADIOLOGY REPORT ---
EXAM: CT CT HEAD INDICATION: stroke TECHNIQUE: CT of the head without intravenous contrast. Radiation Dose : 1. Head: CT Dose: CTDI volume is 67.79 mGy. Dose-length product is 2563.11 mGy*cm The dose indicators for CT are the volume Computed Tomography (CT) Dose Index (CTDIvol) and the Dose Length Product (DLP), and are measured in units of mGy and mGy-cm, respectively. These indicators are not patient dose, but values generated from the CT scanner acquisition factors. The report includes radiation exposure data for exposures received during this examination. COMPARISON: CT CT HEAD on DOS: 04/16/25, CT CT HEAD on DOS: 04/04/25, CT CT HEAD on DOS: 01/14/25, CT CT HEAD on DOS: 01/11/25 FINDINGS: There is no evidence of acute intracranial hemorrhage, extra-axial collection, mass effect, midline shift, herniation or hydrocephalus. Increased prominence of the ventricles, sulci and cisterns consistent with sequelae of atrophic cortical volume loss. The hagan-white differentiation is intact. Moderate diffuse confluent periventricular and subcortical white matter hypoattenuation is nonspecific but may be related to small vessel ischemic disease. Left maxillary and right sphenoid mucosal sinus disease. The remaining visualized paranasal sinuses and mastoid air cells are clear. The surrounding soft tissues and osseous structures are unremarkable. IMPRESSION: 1. No acute intracranial abnormality. 2. Chronic sequelae of microangiopathy and atrophic cortical volume loss. Radiation optimization: All CT scans at this facility use at least one of these dose optimization techniques: automated exposure control mA and/or kV adjustment per patient size (includes targeted exams where dose is matched to clinical indication) or iterative reconstruction.
[2025-05-05] MEDS: vancomycin/NS 1 GM ADD-VANTAGE 250 ML X 1 DOSE IV ONE ×2 (01:38→04:33)
[2025-05-05] MEDS: piperacillin/tazo 3.375gm/50ml 50 ML IV SCH (02:11)
[2025-05-05] MEDS: metoprolol succinate 25mg (24-HOUR) SR. Tablet PO STA (03:18)
[2025-05-05] MEDS ORDERED: INSU100V55 SQ (06:51)
[2025-05-05] MEDS ORDERED: METO-539 PO (06:53)
[2025-05-05 07:38] LABS: MEAN PLATELET VOLUME 8.3 FL (7.4-10.4); RED CELL DISTRIBUTION WIDTH 17.9 % (11.5-14.5)
[2025-05-05 07:49] LABS: APTT 25 SECONDS (22-32); INR 1.3 INR
[2025-05-05] MEDS: K and/or MAG REPLACEMENT MC SCH (08:00)
[2025-05-05] MEDS ORDERED: heparin, porcine 5000 units/ml vial SQ SCH (08:00)
[2025-05-05] MEDS: metoprolol succinate 25mg (24-HOUR) SR. Tablet PO SCH (08:12)
[2025-05-05] MEDS: sacubitril/valsartan 49mg-51mg tablet PO SCH (08:13)
[2025-05-05] MEDS: docusate sod 100mg capsule PO SCH (08:13)
[2025-05-05] MEDS: donepezil 5mg tablet PO SCH (08:13)
[2025-05-05] MEDS: potassium chloride 8mEq ER tablet PO SCH (08:13)
[2025-05-05 08:15] LABS: CHOL/HDL RATIO 2.7 (0.00-4.99); CREATININE 0.90 MG/DL (0.60-1.10); LDL CHOLESTEROL 55 MG/DL (50-100); TOTAL CARBON DIOXIDE 25.0 MMOL/L (24-32); eCRCL 78 ML/MIN; eGFR 82 ML/MIN
[2025-05-05] MEDS: INSULIN LISPRO 100 UNIT/ML INSULN.PEN MULTI-DOSE SQ SCH ×2 (08:29→09:16)
--- NOTE | 2025-05-05 12:32 | VASCULAR REPORT ---
The above named patient was referred for a NON-INVASIVE CEREBROVASCULAR EVALUATION. The evaluation includes grayscale imaging, color flow Doppler and spectral analysis of the bilateral carotid and vertebral arteries. Patient IN-PATIENT L tetihinBilateral Indications Confusion Risk Factors Hypertension: Diabetes Doppler Spectral Velocity Analysis Right Left pCCA 122/16 cm/s pCCA 116/18 cm/s dCCA 82/16 cm/s dCCA 97/18 cm/s ECA 148/cm/s ECA 180/ cm/s pICA 102/33 cm/s 89/24 cm/s pICA 95/24 cm/s Angel Angel 79/22 cm/s dICA 57/14 cm/s dICA 70/21 cm/s Vert. 44/8 cm/s Vert. 46/12 cm/s Subcl. 158/ cm/s Subcl. 172/ cm/s ICA/CCA 1.24 ICA/CCA 0.98 Real-Time B-Mode Imaging Area Findings Right Left CCA Plaque Composition Intimal thickening Intimal thickening BIF Plaque Composition Heterogeneous Heterogeneous Plaque Description Irregular Irregular ICA Plaque Composition Heterogeneous Heterogeneous Plaque Description Smooth Irregular ECA Plaque Composition Intimal thickening Intimal thickening Vertebral Antegrade Antegrade Subclavian Multiphasic Multiphasic CONCLUSION <50% stenosis detected in the Internal Carotid Arteries bilaterally. <50% stenosis detected in the bilateral External Carotid Arteries and bilateral Common Carotid Arteries. Antegrade flow noted within the Vertebral Arteries bilaterally. Multiphasic waveforms noted in the bilateral Subclavian Arteries.
[2025-05-05 12:34] LABS: % IRON SATURATION 8 % (11-46)
[2025-05-05] MEDS: vancomycin/NS 1 GM ADD-VANTAGE 250 ML IV SCH (12:55)
--- NOTE | 2025-05-05 14:05 | PROGRESS NOTE ---
Daily Progress Note Providers to CC ~ Antibiotic Timeout Antibiotic Ordered?: Yes Subjective Patient has no new complaints, states he continues to have shoulder pain Objective Vital Signs Date Time Temp Pulse Resp B/P (MAP) Pulse Ox O2 Delivery O2 Flow Rate FiO2 05/05/25 11:13 97.8 78 18 133/59 (83) 96 Room Air 05/04/25 20:35 0 Result Diagram: 05/05/25 0715 05/05/25 0715 Gen. awake alert oriented asymptomatic HEENT: Normocephalic, atraumatic, extraocular movements are intact, sclera anicteric, conjunctiva pinkish, moist oral mucosa, no rash or ulcers. NECK: Supple, no JVD, trachea midline. CHEST: Clear to auscultation, no wheezes crackles or rhonchi. HEART: Regular rate rhythm, no murmur gallop or rub. ABDOMEN: Soft, nontender, no organomegaly. EXTREMITIES: No cyanosis clubbing or edema. NEURO EXAM: Grossly nonfocal. MUSCULOSKELETAL : Right shoulder swelling with limited range of motion noted. SKIN: No rash or ulcers noted. Coagulation Studies Laboratory Tests Test 05/05/25 07:15 Prothrombin Time 13.1 SECONDS (9.0-12.0) H INR International Normalized Ratio 1.3 INR Activated Partial Thromboplast Time 25 SECONDS (22-32) Coagulation Comments Other Results Medications reviewed Problem\Assessment\Plan 74-year-old male with dementia, type 2 diabetes, recurrent UTIs, paroxysmal atrial fibrillation on warfarin, HFrEF (EF 4045%) and chronic pain syndrome was brought to the ED for worsening confusion and decreased responsiveness over the past two days. #. Metabolic encephalopathy: Improved mental status. Patient is awake cooperative. Likely has underlying mild dementia #. Right shoulder pain: Patient underwent a arthrocentesis which showed cloudy synovial fluid with 98747 WBCs and 91820 RBCs. We will request ortho consultation. # NIDDM: Carb controlled diet. Hyper/hypoglycemia protocol # paroxysmal AFib: Rate controlled. Continue Coumadin # Chronic pain syndrome: Continue tramadol #code status: Full code. Date of Service: May 05, 2025 Billing Provider: DINO ECHEVERRIA MD Common Visit Codes: [id number] INP/OBS CARE(HIGH) DINO ECHEVERRIA MD May 05, 2025 14:05
--- NOTE | 2025-05-05 14:12 | RADIOLOGY REPORT ---
MRI BRAIN WITHOUT CONTRAST History: For stroke Comparison: CT CT HEAD on DOS: 05/05/25 Technique: Multi-sequence, multiplanar magnetic resonance images of the brain are reviewed. Findings: No acute hemorrhage or infarct is seen. Scattered T2/FLAIR hyperintense foci in the periventricular and subcortical white matter, suggestive of chronic microvascular disease. Nonspecific T2/FLAIR hyperintense signal changes involving the left anterior temporal lobe. The ventricles and sulci are mildly enlarged, compatible with generalized pa renchymal volume loss. There is no evidence of mass or mass effect. There are no abnormal extra-axial fluid collections. The major intracranial blood vessels retain normal flow voids consistent with their patency. Scattered mucosal thickening of the paranasal sinuses. Mastoid air cells are clear.. IMPRESSION: No acute infarct. No acute intracranial hemorrhage. Nonspecific T2/FLAIR hyperintense signal changes involving the left anterior temporal lobe. Recommend MRI with and without contrast to assess for possible underlying enhancement.
[2025-05-05] MEDS: warfarin 3mg tablet PO ONE (20:01)
[2025-05-05] MEDS: insulin glargine (Lantus) pen - multi-dose SQ SCH (20:05)
[2025-05-05] MEDS ORDERED: SPIR25TA5 PO (22:54)
[2025-05-05] MEDS ORDERED: TAMSULOSIN PO (22:58)
[2025-05-05] MEDS ORDERED: SACUBITRIL-VALSARTAN PO (22:58)
[2025-05-06] VITALS (8 sets, daily range): BP systolic 107–160; BP diastolic 61–89; PULSE 60–113; RESP 15–21; TEMP 97–98.6; O2SAT 92–98
[2025-05-06] MEDS ORDERED: WARF4TAB69 PO (06:34)
[2025-05-06 06:39] LABS: INR 1.3 INR
[2025-05-06 06:44] LABS: MEAN PLATELET VOLUME 8.5 FL (7.4-10.4); RED CELL DISTRIBUTION WIDTH 17.4 % (11.5-14.5)
[2025-05-06 06:47] LABS: CREATININE 0.91 MG/DL (0.60-1.10); TOTAL CARBON DIOXIDE 24.7 MMOL/L (24-32); eCRCL 77 ML/MIN; eGFR 81 ML/MIN
--- NOTE | 2025-05-06 07:24 | CONSULTATION REPORT ---
History of Present Illness Providers to CC ~ Reason for Admit\Admit Dx: R shoulder pain Refering MD: Dr Machado History of Present Illness The patient is a 74-year-old man with a history of dementia diabetes metabolic encephalopathy, and chronic pain. Consultation is being obtained for right shoulder pain. He has a chronic pain syndrome and has been seen before for right shoulder pain. Complains of pain in his tendon a 10 but is a poor historian. Aspiration of the shoulder was done in the emergency department which showed 81121 white cells and 80066 red cells. Culture is pending Allergies: Coded Allergies: No Known Allergies (Unverified , 04/04/25) Home Medications Home Medications Active Reported Warfarin Sodium 4 Mg Tablet 1 Tab PO DAILY 30 Days [Sacubitril-Valsartan] 49-51mg Tab PO BID [Tamsulosin] 0.4 mg Cap PO DAILY Spironolactone 25 Mg Tablet 1 Tab PO DAILY Toprol Xl* (Metoprolol Succinate) 25 Mg Tab.sr.24h 2 Tab PO DAILY 30 Days Insulin Glargine-Yfgn 100 Unit/Ml Vial 10 SQ HS Donepezil Hcl 5 Mg Tab.rapdis 1 Tab PO DAILY Lipitor* (Atorvastatin Calcium) 40 Mg Tablet 1 Tab PO DAILY Lasix* (Furosemide) 20 Mg Tablet 1 Tab PO DAILY Klor-Con 8 (Potassium Chloride) 8 Meq Tablet.er 1 Tab PO DAILY Tramadol HCl 50 Mg Tablet 1 Tab PO Q6H PRN PRN Metformin Hcl 500 Mg Tablet 2 Tab PO Q12H Past Family History Family History: Patient reports no known family medical history. Physical Exam Last Vital Signs Recorded: Temperature: 97.5, Source: Oral, Heart Rate: 70, Respiratory Rate: 19, BP: 160/88, Pulse Oximetry: 94, Weight: 88.000 General Appearance: ill-appearing Extremities There was no warmth erythema or swelling about the shoulder joint. He holds it at his side. I can rotated internally and externally and forward flexes about 50 before the patient resists. The humerus elbow and distal to that or and a normal. He is able to make a full fist and states no loss of sensation. Results Results/Orders Results/Orders X-ray of the shoulder showed no obvious abnormalities Diagram Lab Result Diagram: 05/06/25 0613 05/06/25 0613 Assessment/Plan Problems/Diagnosis: (1) Shoulder pain Additional Plan We will wait for the culture results. There was possibility of septic shoulder versus inflammatory reaction. I will follow with you Problem Qualifiers (1) Shoulder pain: Qualified Codes: M25.511 - Pain in right shoulder; G89.29 - Other chronic pain ROMEO العراقي Jr., MD May 06, 2025 07:24
[2025-05-06] MEDS: potassium Cl 20 mEq SR tablet PO PRN (07:49)
[2025-05-06] MEDS: VANCOMYCIN LEVEL IV ONE (12:33)
--- NOTE | 2025-05-06 16:56 | PROGRESS NOTE ---
Daily Progress Note Providers to CC ~ Antibiotic Timeout Antibiotic Ordered?: Yes Subjective No new complaints. Continues to have right shoulder pain. Objective Vital Signs Date Time Temp Pulse Resp B/P (MAP) Pulse Ox O2 Delivery O2 Flow Rate FiO2 05/06/25 15:28 97.0 96 15 107/64 (78) 96 Room Air 05/04/25 20:35 0 Result Diagram: 05/06/25 0605/06/25 0613 Gen. awake alert oriented asymptomatic HEENT: Normocephalic, atraumatic, extraocular movements are intact, sclera anicteric, conjunctiva pinkish, moist oral mucosa, no rash or ulcers. NECK: Supple, no JVD, trachea midline. CHEST: Clear to auscultation, no wheezes crackles or rhonchi. HEART: Regular rate rhythm, no murmur gallop or rub. ABDOMEN: Soft, nontender, no organomegaly. EXTREMITIES: No cyanosis clubbing or edema. NEURO EXAM: Grossly nonfocal. MUSCULOSKELETAL : Right shoulder swelling with limited range of motion noted. SKIN: No rash or ulcers noted. Coagulation Studies Laboratory Tests Test 05/05/25 07:15 05/06/25 06:13 Activated Partial Thromboplast Time 25 SECONDS (22-32) Prothrombin Time 13.4 SECONDS (9.0-12.0) H INR International Normalized Ratio 1.3 INR Coagulation Comments Other Results Medications reviewed Problem\Assessment\Plan 74-year-old male with dementia, type 2 diabetes, recurrent UTIs, paroxysmal atrial fibrillation on warfarin, HFrEF (EF 4045%) and chronic pain syndrome was brought to the ED for worsening confusion and decreased responsiveness over the past two days. #. Metabolic encephalopathy: Improved mental status. Patient is awake cooperative. Likely has underlying mild dementia #. Right shoulder pain: Patient underwent a arthrocentesis which showed cloudy synovial fluid with 46591 WBCs and 20701 RBCs. Ortho consulted and Dr. Cooper saw the patient. Awaiting cultures from the synovial fluid which shows no growth so far. # NIDDM: Carb controlled diet. Hyper/hypoglycemia protocol # paroxysmal AFib: Rate controlled. Continue Coumadin # Chronic pain syndrome: Continue tramadol #code status: Full code. Date of Service: May 06, 2025 Billing Provider: DINO ECHEVERRIA MD Common Visit Codes: [id number] INP/OBS CARE(HIGH) DINO ECHEVERRIA MD May 06, 2025 16:56
[2025-05-06] MEDS: warfarin 3mg tablet PO ONE (21:10)
[2025-05-07] VITALS (22 sets, daily range): BP systolic 125–159; BP diastolic 68–100; PULSE 65–93; RESP 11–17; TEMP 97–98.5; O2SAT 88–98
[2025-05-07 06:21] LABS: CREATININE 1.02 MG/DL (0.60-1.10); TOTAL CARBON DIOXIDE 23.9 MMOL/L (24-32); eCRCL 69 ML/MIN; eGFR 71 ML/MIN
[2025-05-07] MEDS ORDERED: BUPIVAcaine 2.5mg/ml inj 50ml vial (contains preservative) ONE (06:49)
[2025-05-07] MEDS ORDERED: fentaNYL /PF 50mcg/ml 5ml ampule ONE (07:33)
[2025-05-07] MEDS ORDERED: vancomycin 1,000mg inj ONE (07:54)
[2025-05-07] MEDS ORDERED: propofol inj 20 ML IV ONE (08:25)
--- NOTE | 2025-05-07 08:27 | OPERATIVE REPORT ---
Operative Report Providers to ~ Date of Procedure: May 07, 2025 Pre-Operative Diagnosis: Right septic shoulder Post-Operative Diagnosis SAME as PRE-Op Procedure Performed Arthrotomy right shoulder with the incision and drainage Surgeon: Cruzito Cooper MD Tire Adjuster None Anesthesiologist: Christoph Park Type of Anesthesia: General Findings: Normal-appearing synovial fluid Complications None Prosthetics\Implants used: None Estimated Blood Loss: 20 mL Specimen Removed: Deep joint fluid culture Description of Procedure: The patient is a 74-year-old man who presented with a severe right shoulder pain and irritability of the joint. Aspiration in the emergency room revealed 00339 white blood cell. Suspicion for septic shoulder was made. Surgery is indicated to prevent joint destruction. Risks and benefits were discussed with the patient and he agreed to proceed. He was brought to the operating room where the anesthetic was given. He was placed in the beach chair position and the right shoulder was prepped and draped in usual manner. Standard anterior deltopectoral incision was made with preservation of the cephalic vein and muscle cutaneous nerve. An arthrotomy was made vertically in the anterior shoulder joint and some synovial fluid was expressed. A deep wound culture was obtained from the synovial fluid. The joint capsule was opened and thorough debridement was done with the antibiotic solution and pulse lavage. This was followed by placement of vancomycin powder and irrigation of the wound followed by closure in layers. Marcaine was injected and a dressing was then applied. The patient was awakened and taken to the recovery room in stable condition and tolerated the procedure well. CRUZITO COOPER Jr., MD May 07, 2025 08:27
[2025-05-07] MEDS: ringers solution, lacted 1,000 ML IV SCH (08:40)
[2025-05-07] MEDS ORDERED: hydrALAZINE 20mg/ml inj. IV PRN (08:40)
[2025-05-07] MEDS ORDERED: ondansetron/PF 4mg/2ml inj IV PRN (08:40)
[2025-05-07] MEDS ORDERED: acetaminophen 1,000mg/100ml IV 100 ML IV PRN (08:40)
[2025-05-07] MEDS ORDERED: labetalol 20mg/4ml (5mg/ml) syringe IV PRN (08:40)
[2025-05-07] MEDS ORDERED: fentaNYL/PF 50MCG/1 ML 2ML syringe IV PRN ×2 (08:40)
[2025-05-07 11:37] LABS: MEAN PLATELET VOLUME 8.4 FL (7.4-10.4); RED CELL DISTRIBUTION WIDTH 17.4 % (11.5-14.5)
[2025-05-07 11:45] LABS: INR 1.6 INR
--- NOTE | 2025-05-07 18:09 | PROGRESS NOTE ---
Daily Progress Note Providers to CC ~ Antibiotic Timeout Antibiotic Ordered?: Yes Subjective Patient has no new complaints. States he underwent a surgery on his shoulder today. Objective Vital Signs Date Time Temp Pulse Resp B/P (MAP) Pulse Ox O2 Delivery O2 Flow Rate FiO2 05/07/25 13:15 97.0 71 13 126/79 (95) 98 Room Air 05/07/25 10:23 0.0 Result Diagram: 05/07/25 1048 05/07/25 0533 Gen. awake alert oriented asymptomatic HEENT: Normocephalic, atraumatic, extraocular movements are intact, sclera anicteric, conjunctiva pinkish, moist oral mucosa, no rash or ulcers. NECK: Supple, no JVD, trachea midline. CHEST: Clear to auscultation, no wheezes crackles or rhonchi. HEART: Regular rate rhythm, no murmur gallop or rub. ABDOMEN: Soft, nontender, no organomegaly. EXTREMITIES: No cyanosis clubbing or edema. NEURO EXAM: Grossly nonfocal. MUSCULOSKELETAL : Right shoulder swelling with limited range of motion noted. Bandage over the right shoulder. SKIN: No rash or ulcers noted. Coagulation Studies Laboratory Tests Test 05/05/25 07:15 05/07/25 10:48 Activated Partial Thromboplast Time 25 SECONDS (22-32) Prothrombin Time 15.7 SECONDS (9.0-12.0) H INR International Normalized Ratio 1.6 INR Coagulation Comments Other Results Medications reviewed Problem\Assessment\Plan 74-year-old male with dementia, type 2 diabetes, recurrent UTIs, paroxysmal atrial fibrillation on warfarin, HFrEF (EF 4045%) and chronic pain syndrome was brought to the ED for worsening confusion and decreased responsiveness over the past two days. #. Metabolic encephalopathy: Improved mental status. Patient is awake cooperative. Likely has underlying mild dementia . We will hold off on further imaging studies. #. Right shoulder pain: Patient underwent a arthrocentesis which showed cloudy synovial fluid with 69849 WBCs and 09260 RBCs. Ortho consulted and Dr. Cooper saw the patient. Subsequently patient underwent right shoulder arthrotomy. Continue treat per ortho recommendations. # systolic CHF: Without exacerbation. Monitor I's and o's. # NIDDM: Carb controlled diet. Hyper/hypoglycemia protocol # paroxysmal AFib: Rate controlled. Continue Coumadin # Chronic pain syndrome: Continue tramadol #code status: Full code. Date of Service: May 07, 2025 Billing Provider: DINO ECHEVERRIA MD Common Visit Codes: [id number] INP/OBS CARE(HIGH) DINO ECHEVERRIA MD May 07, 2025 18:09
[2025-05-07] MEDS: warfarin 3mg tablet PO ONE (22:24)
[2025-05-08] VITALS (8 sets, daily range): BP systolic 110–170; BP diastolic 64–96; PULSE 79–88; RESP 16–22; TEMP 98–98.8; O2SAT 92–97
[2025-05-08 04:33] LABS: MEAN PLATELET VOLUME 8.0 FL (7.4-10.4); RED CELL DISTRIBUTION WIDTH 17.6 % (11.5-14.5)
[2025-05-08 04:39] LABS: INR 2.1 INR
[2025-05-08 04:50] LABS: CREATININE 0.83 MG/DL (0.60-1.10); TOTAL CARBON DIOXIDE 26.1 MMOL/L (24-32); eCRCL 84 ML/MIN; eGFR 90 ML/MIN
--- NOTE | 2025-05-08 09:57 | PROGRESS NOTE ---
Daily Progress Note Providers to CC ~ Antibiotic Timeout Antibiotic Ordered?: Yes Subjective No new complaints, patient is seen resting comfortably. Objective Vital Signs Date Time Temp Pulse Resp B/P (MAP) Pulse Ox O2 Delivery O2 Flow Rate FiO2 05/08/25 08:20 78 05/08/25 06:51 98.3 20 148/86 (106) 92 Room Air 05/07/25 20:00 0.0 Result Diagram: 05/08/2541005/08/25410 Gen. awake alert oriented asymptomatic HEENT: Normocephalic, atraumatic, extraocular movements are intact, sclera anicteric, conjunctiva pinkish, moist oral mucosa, no rash or ulcers. NECK: Supple, no JVD, trachea midline. CHEST: Clear to auscultation, no wheezes crackles or rhonchi. HEART: Regular rate rhythm, no murmur gallop or rub. ABDOMEN: Soft, nontender, no organomegaly. EXTREMITIES: No cyanosis clubbing or edema. NEURO EXAM: Grossly nonfocal. MUSCULOSKELETAL : limited range of motion of right shoulder noted. Bandage over the right shoulder. SKIN: No rash or ulcers noted. Coagulation Studies Laboratory Tests Test 05/05/25 07:15 05/08/25 04:11 Activated Partial Thromboplast Time 25 SECONDS (22-32) Prothrombin Time 20.3 SECONDS (9.0-12.0) H INR International Normalized Ratio 2.1 INR Coagulation Comments Other Results Medications reviewed Problem\Assessment\Plan 74-year-old male with dementia, type 2 diabetes, recurrent UTIs, paroxysmal atrial fibrillation on warfarin, HFrEF (EF 4045%) and chronic pain syndrome was brought to the ED for worsening confusion and decreased responsiveness over the past two days. #. Metabolic encephalopathy: Improved mental status. Patient is awake cooperative. Likely has underlying mild dementia . We will hold off on further imaging studies. #. Right shoulder pain: Patient underwent a arthrocentesis which showed cloudy synovial fluid with 21396 WBCs and 67722 RBCs. Ortho consulted and Dr. Cooper saw the patient. Subsequently patient underwent right shoulder arthrotomy. Continue treat per ortho recommendations. # systolic CHF: Without exacerbation. Monitor I's and o's. Continue lasix, entresto, spironolactone # BPH:Continue Tamsulosin # NIDDM: Carb controlled diet. Hyper/hypoglycemia protocol # paroxysmal AFib: Rate controlled. Continue Coumadin # Chronic pain syndrome: Continue tramadol #code status: Full code. Date of Service: May 08, 2025 Billing Provider: DINO ECHEVERRIA MD Common Visit Codes: [id number] INP/OBS CARE(MOD) DINO ECHEVERRIA MD May 08, 2025 09:57
[2025-05-08] MEDS: warfarin 5mg tablet PO ONE (20:52)
[2025-05-08] MEDS: warfarin 1mg tablet PO ONE (20:53)
[2025-05-08] MEDS: insulin glargine (Lantus) pen - multi-dose SQ SCH (20:59)
[2025-05-08] MEDS ORDERED: warfarin 3mg tablet PO ONE (21:00)
[2025-05-09 06:27] LABS: MEAN PLATELET VOLUME 8.2 FL (7.4-10.4); RED CELL DISTRIBUTION WIDTH 17.3 % (11.5-14.5)
[2025-05-09 06:43] LABS: INR 2.7 INR
[2025-05-09 07:24] LABS: CREATININE 0.82 MG/DL (0.60-1.10); TOTAL CARBON DIOXIDE 25.6 MMOL/L (24-32); eCRCL 85 ML/MIN; eGFR > 90 ML/MIN
[2025-05-09] MEDS ORDERED: magnesium sulf-water 4G/100mL 100 ML IV PRN (08:50)
[2025-05-09] MEDS ORDERED: magnesium Cl slow-release 64mg tablet PO PRN (08:50)
[2025-05-09] MEDS ORDERED: magnesium sulf-water 2g/50mL 50 ML IV PRN (08:50)
[2025-05-09] MEDS ORDERED: potassium Cl 20 mEq SR tablet PO PRN (08:50)
[2025-05-09] MEDS ORDERED: potassium Cl 40MEQ/1/2NS 520ml 520 ML IV PRN (08:50)
[2025-05-09 10:00] VITALS: BP 115/58; PULSE 75; RESP 16; TEMP 98; O2SAT 96
[2025-05-09] MEDS: potassium Cl 20 mEq SR tablet PO PRN (13:48)
--- NOTE | 2025-05-09 20:03 | DISCHARGE SUMMARY ---
Discharge Summary Providers to CC ~ Discharge Summary Admission Diagnosis: Right septic shoulder Hospital Course DATE OF ADMISSION: 05/04/2025 DATE OF DISCHARGE: 05/09/2025 Discharge Diagnosis\\Comment: Metabolic encephalopathy, right septic shoulder, chronic HFrEF, BPH, paroxysmal atrial fibrillation rate controlled, [id number] diabetes mellitus poorly controlled Operations\\Procedures: Arthrotomy right shoulder with the incision and drainage Consultants: Dr. Carlos Cooper orthopedic surgeon Complications: None Condition on DC: Stable Continued Medications: Atorvastatin Calcium* (Lipitor*) 40 Mg Tablet 1 TAB PO DAILY, TAB Donepezil Hcl (Donepezil Hcl) 5 Mg Tab.rapdis 1 TAB PO DAILY, TAB Furosemide* (Lasix*) 20 Mg Tablet 1 TAB PO DAILY, TAB Insulin Glargine-Yfgn (Insulin Glargine-Yfgn) 100 Unit/Ml Vial 10 SQ HS Metoprolol Succinate* (Toprol Xl*) 25 Mg Tab.sr.24h 2 TAB PO DAILY for 30 Days, #30 TAB Potassium Chloride (Klor-Con 8) 8 Meq Tablet.er 1 TAB PO DAILY, TAB [Sacubitril-Valsartan] () 49-51mg TAB 1 TAB PO BID Spironolactone (Spironolactone) 25 Mg Tablet 1 TAB PO DAILY [Tamsulosin] () 0.4 mg CAP 1 CAP PO DAILY Tramadol HCl (Tramadol HCl) 50 Mg Tablet 1 TAB PO Q6H PRN PRN for pain, TAB Warfarin Sodium (Warfarin Sodium) 4 Mg Tablet 1 TAB PO DAILY for 30 Days, #30 TAB 0 Refills Discontinued Medications: Metformin Hcl (Metformin Hcl) 500 Mg Tablet 2 TAB PO Q12H, TAB 0 Refills Discharge Summary: The patient is admitted by resident physician IGNACIO Carvalho , under the supervision of TANO Aranda MD the following HPI:"A 74-year-old male with dementia, type 2 diabetes, recurrent UTIs, paroxysmal atrial fibrillation on warfarin, HFrEF (EF 4045%) and chronic pain syndrome was brought to the ED for worsening confusion and decreased responsiveness over the past two days. Patient was confused and hence history has been obtained from his son. Patient's son reports he has been sleeping a lot, less interactive, and not close to his baseline cognition. He also noted shaking earlier in the day but no witnessed fall or focal weakness. He lives with his son and ambulated with a cane until this decline. The patient himself is oriented only to self and states he does not know why he is here. Denies fever, dysuria, abdominal pain, chest pain, vomiting, diarrhea, or respiratory symptoms. He was discharged on 04/07/2025 after treatment for encephalopathy secondary to UTI; his previous urine culture grew E. coli resistant to ceftriaxone but sensitive to meropenem, piperacillin-tazobactam and amoxicillin and he completed a course of IV meropenem at [facility]. In the ED today, glucose was 320 , WBC 10.4, CRP 5.47, procalcitonin negative. UA shows >300 protein, moderate occult blood, 2030 WBC, but nitrite and leukocyte esterase negative. CT head pending; chest X-ray shows cardiomegaly with pulmonary vascular congestion but no clinical signs of fluid overload. Son is concerned for possible stroke due to progressive lethargy." CT scan and MRI of the head was negative for any acute infarct or hemorrhage. The patient has a septic right shoulder went for an arthrotomy with I and D with Dr. Carlos Cooper a deep culture was sent for which is negative to date urine culture was negative as well the patient was on IV vancomycin and IV Zosyn during hospitalization and was prescribed an additional week of p.o. Augmentin with Culturelle. The patient has a type 2 diabetes mellitus which his blood sugars were poorly controlled place and a hyper and hypoglycemic protocol with a some improvement in his blood sugars. The patient is discharged to post acute rehab on HS Lantus and postprandial insulin The patient has paroxysmal atrial fibrillation and remains on metoprolol succinate as well as Coumadin for DVT and stroke prophylaxis his INR in the day of transfer was 2.7. Gen. No acute distress alert and oriented Lungs clear to ascultation bilaterally, no wheezes rales or rhonchi appreciated Heart normal sinus rhythm no murmurs rubs or clicks noted Abdomen soft nontender bowel sounds are normoactive Lower extremities no clubbing cyanosis, nor edema appreciated bilaterally The patient is medically cleared to be transferred to post acute rehab on 05/09/2025 The patient was seen and evaluated on the day of transfer and 40 minutes was spent on discharging the patient. The patient is to follow up with Dr. oCoper in one-week and a CBC and a basic metabolic panel in one-week. Resume home dose of Coumadin for now. *Problems/Diagnosis: (1) Shoulder pain Status: Acute Total Time Spent on D/C: > 30 Minutes Date of Service: May 09, 2025 Billing Provider: NATALIE BURR DO Common Visit Codes: 51610-DHO/OBS DISCH DAY >30min Problem Qualifiers (1) Shoulder pain: Qualified Codes: M25.511 - Pain in right shoulder; G89.29 - Other chronic pain NATALIE BURR DO May 09, 2025 19:59
[2025-05-09] MEDS ORDERED: warfarin 5mg tablet PO ONE (21:00)
== END 2025-05-09 17:26 | DRG 507 ==
LOC: ER 17:05 → ED HOLD 20:14 → PCU 3S 22:35 → SUR 3N 05-06 15:20
PROVIDERS: ADMIT Internal Medicine Pulmonary Disease; ATTEND Internal Medicine
PROC: 0R9J0ZZ Drainage of Right Shoulder Joint, Open Approach (ICD-10-PCS; principal; 2025-05-07 07:29)
DX: M00.9 Pyogenic arthritis, unspecified (principal); G93.41 Metabolic encephalopathy; Z66 Do not resuscitate; E11.9 Type 2 diabetes mellitus without complications; F03.90 Unspecified dementia, unspecified severity, without behavioral disturbance, psychotic disturbance, mood disturbance, and anxiety; D64.9 Anemia, unspecified; G89.4 Chronic pain syndrome; N39.0 Urinary tract infection, site not specified; Z79.01 Long term (current) use of anticoagulants; I50.22 Chronic systolic (congestive) heart failure; I48.0 Paroxysmal atrial fibrillation; N40.0 Benign prostatic hyperplasia without lower urinary tract symptoms; Z79.84 Long term (current) use of oral hypoglycemic drugs; Z87.440 Personal history of urinary (tract) infections
CPT/HCPCS: 36415; 70450; 70551; 71045; 71250; 73030; 80048; 80053; 80061; 80202; 81001; 82140; 82607; 82728; 82948; 83540; 83550; 83605; 83735; 83880; 84145; 84443; 84484; 85025; 85610; 85730; 86140; 87040; 87070; 87075; 87081; 87088; 89051; 89060; 92508; 92616; 93005; 93880; 97110; 97116; 97162; 97164; 97530; 99285; A4565; A4618; A6258; A6449; A6590; A7000; C1758; G0378; J0696; J1171; J1815; J2270; J2543; J2704; J3010; J3373; J3490; J7030; J7040; J7120